=== PATIENT | female | born 1970 | race Caucasian/White ===

== ENCOUNTER 2019-05-07 17:34 | Emergency (ER) | payer MEDICAID ==
[~2019-05-07] VITALS: Ht 162.6 cm; Wt 110.0 kg
[~2019-05-07 17:34] MED LIST: CARI350T PO; CLON-527 PO; HYDR-4353 PO; ONDA4TAB6 PO; ONDA8TAB9 PO
[2019-05-07 18:38] LABS: BASOPHILS # (AUTO) 0.1 X10'3 (0-0.2); BASOPHILS % (AUTO) 0.8 % (0-1); EOSINOPHILS # (AUTO) 0.2 X10'3 (0-0.9); HEMATOCRIT 41.1 % (35.0-45.0); HEMOGLOBIN 13.8 g/dl (12.0-16.0); LYMPHOCYTES # (AUTO) 2.3 X10'3 (1.1-4.8); LYMPHOCYTES % (AUTO) 24.3 % (21-51); MEAN CORPUSCULAR HEMOGLOBIN 30.6 PG (27.0-31.0); MEAN CORPUSCULAR HGB CONC 33.6 g/dL (33.0-36.5); MEAN CORPUSCULAR VOLUME 90.9 FL (78-98); MEAN PLATELET VOLUME 7.3 FL (7.4-10.4); MONOCYTES # (AUTO) 0.8 X10'3 (0-0.9); MONOCYTES % (AUTO) 7.8 % (2-12); NEUTROPHILS # (AUTO) 6.3 X10'3 (1.8-7.7); NEUTROPHILS % (AUTO) 65.1 % (42-75); PLATELET COUNT 331 X10'3 (140-440); RED BLOOD COUNT 4.52 X10'6 (4.20-5.60); RED CELL DISTRIBUTION WIDTH 14.5 % (11.5-14.5); WHITE BLOOD COUNT 9.6 X10'3 (4.5-11.0)
--- NOTE | 2019-05-07 18:45 | NUR ---
pt with stable vs, ra sats 94% rr 22. pt reports moderate ant to lungs and chest heaviness , increased with couging and deep breathing . awaiting er provider.
[2019-05-07 18:46] LABS: PARTIAL THROMBOPLASTIN TIME 27 SECONDS (22-32)
[2019-05-07 18:52] LABS: ALANINE AMINOTRANSFERASE 32 U/L (12-78); ALBUMIN 3.3 G/DL (3.4-5.0); ALBUMIN/GLOBULIN RATIO 0.8 (1.1-1.5); ALKALINE PHOSPHATASE 84 IU/L (46-116); ANION GAP 5 (8-16); ASPARTATE AMINO TRANSFERASE 21 U/L (10-37); BILIRUBIN,TOTAL 0.5 MG/DL (0.1-1.0); BLOOD UREA NITROGEN 12 MG/DL (7-18); BUN/CREATININE RATIO 12.6 (6.6-38.0); CALCIUM 8.8 MG/DL (8.5-10.1); CHLORIDE 104 MMOL/L (99-107); CREATININE 0.95 MG/DL (0.40-0.90); GLUCOSE 97 MG/DL (70-104); POTASSIUM 3.5 MMOL/L (3.5-5.1); SODIUM 142 MMOL/L (135-145); TOTAL CARBON DIOXIDE 33.3 MMOL/L (24-32); TOTAL PROTEIN 7.2 G/DL (6.4-8.2); eGFR 63 ML/MIN
[2019-05-07 19:39] VITALS: BP 121/62
--- NOTE | 2019-05-07 20:29 | NUR ---
noticed that the patient was not in the room. The gown is laying over the siderail and no belongings in the room.
== END 2019-05-07 20:30 | disposition left against medical advice (07) ==
LOC: ER 17:36
DX: R07.89 Other chest pain (principal); R06.00 Dyspnea, unspecified; R61 Generalized hyperhidrosis; Z53.21 Procedure and treatment not carried out due to patient leaving prior to being seen by health care provider; Z79.899 Other long term (current) drug therapy
CPT/HCPCS: 36415; 71046; 80053; 84484; 85025; 85610; 85730; 93005

== ENCOUNTER 2020-03-03 13:02 | Inpatient (IN) | payer MEDICAID ==
[~2020-03-03] VITALS: Ht 162.6 cm; Wt 108.6 kg
[2020-03-03 13:42] LABS: BASOPHILS # (AUTO) 0.1 X10'3 (0-0.2); BASOPHILS % (AUTO) 0.8 % (0-1); EOSINOPHILS # (AUTO) 0.1 X10'3 (0-0.9); EOSINOPHILS % (AUTO) 0.6 % (0-6); HEMATOCRIT 45.5 % (35.0-45.0); HEMOGLOBIN 15.1 g/dl (12.0-16.0); LYMPHOCYTES # (AUTO) 3.2 X10'3 (1.1-4.8); LYMPHOCYTES % (AUTO) 22.2 % (21-51); MEAN CORPUSCULAR HEMOGLOBIN 30.3 PG (27.0-31.0); MEAN CORPUSCULAR HGB CONC 33.1 g/dL (33.0-36.5); MEAN CORPUSCULAR VOLUME 91.7 FL (78-98); MEAN PLATELET VOLUME 8.1 FL (7.4-10.4); MONOCYTES # (AUTO) 0.5 X10'3 (0-0.9); MONOCYTES % (AUTO) 3.6 % (2-12); NEUTROPHILS # (AUTO) 10.6 X10'3 (1.8-7.7); NEUTROPHILS % (AUTO) 72.8 % (42-75); PLATELET COUNT 293 X10'3 (140-440); RED BLOOD COUNT 4.96 X10'6 (4.20-5.60); RED CELL DISTRIBUTION WIDTH 14.5 % (11.5-14.5); WHITE BLOOD COUNT 14.5 X10'3 (4.5-11.0)
[2020-03-03] MEDS ORDERED: aspirin 325mg tablet PO ONE (13:45)
[2020-03-03 14:20] LABS: ALANINE AMINOTRANSFERASE 56 U/L (12-78); ALBUMIN 3.2 G/DL (3.4-5.0); ALBUMIN/GLOBULIN RATIO 0.8 (1.1-1.5); ALKALINE PHOSPHATASE 105 IU/L (46-116); ANION GAP 10 (8-16); ASPARTATE AMINO TRANSFERASE 76 U/L (10-37); BILIRUBIN,TOTAL 0.5 MG/DL (0.1-1.0); BLOOD UREA NITROGEN 8 MG/DL (7-18); BUN/CREATININE RATIO 6.1 (6.6-38.0); CALCIUM 9.3 MG/DL (8.5-10.1); CHLORIDE 103 MMOL/L (99-107); CREATININE 1.31 MG/DL (0.40-0.90); GLUCOSE 203 MG/DL (70-104); POTASSIUM 3.1 MMOL/L (3.5-5.1); SODIUM 141 MMOL/L (135-145); TOTAL CARBON DIOXIDE 28.2 MMOL/L (24-32); TOTAL PROTEIN 7.3 G/DL (6.4-8.2); eGFR 43 ML/MIN
[2020-03-03 14:22] LABS: D-DIMER 9.66 MG/L FEU (0-0.50)
[2020-03-03] MEDS ORDERED: heparin 25,000 UNIT/250ml bag 250 ML IV SCH ×2 (14:27→15:32)
[2020-03-03 14:29] LABS: LIPASE < 50 U/L (73-393)
[2020-03-03] MEDS ORDERED: heparin 10,000 units/1 ML INJ IV ONE ×4 (14:30→15:35)
[2020-03-03] MEDS ORDERED: nitroGLYCERIN 0.4mg/hour patch TD ONE (14:30)
[2020-03-03] MEDS ORDERED: heparin 10,000 units/1 ML INJ IV PRN ×2 (14:30→15:35)
[2020-03-03] MEDS ORDERED: iohexol 350MG/ML 100ml bottle IV ONE (14:33)
[2020-03-03] MEDS: heparin 25,000 UNIT/250ml bag 250 ML IV SCH (15:09)
--- NOTE | 2020-03-03 15:12 | NUR ---
SPOKE WITH AYSHA CLAUDIO REGARDING PT BP. ORDERED TO HOLD NITRO PATCH.
[2020-03-03] MEDS ORDERED: GABA-534 PO (15:21)
[2020-03-03] MEDS ORDERED: LANS15CA10 PO (15:21)
[2020-03-03] MEDS ORDERED: LISI-600 PO (15:22)
[2020-03-03] MEDS ORDERED: ondansetron/PF 4mg/2ml inj IV ONE (15:25)
[2020-03-03] MEDS ORDERED: morphine 4 MG/ML inj SYRINge IV ONE (15:25)
[2020-03-03] MEDS: normal saline 1000ml 1,000 ML IV SCH (15:32)
[2020-03-03] MEDS ORDERED: potassium Cl 20 mEq SR tablet PO PRN ×2 (15:35)
[2020-03-03] MEDS ORDERED: mag hydrox/Alum hydrox/simeth 30ml oral suspension PO PRN (15:35)
[2020-03-03] MEDS ORDERED: magnesium 4gm in 100ml NS 100 ML IV PRN (15:35)
[2020-03-03] MEDS ORDERED: magnesium 2GM in 50ml NS 50 ML IV PRN (15:35)
[2020-03-03] MEDS ORDERED: potassium CL 10mEq/100ml bag 100 ML IV PRN (15:35)
[2020-03-03] MEDS ORDERED: ondansetron/PF 4mg/2ml inj IV PRN (15:35)
[2020-03-03] MEDS ORDERED: acetaminophen 325mg tablet PO PRN (15:35)
[2020-03-03 16:00] VITALS: BP 113/79
[2020-03-03] MEDS: ipratropium/albuterol 3ml nebule NEB SCH ×2 (16:44→20:07)
--- NOTE | 2020-03-03 17:31 | NUR ---
CRITICAL LAB PAGED TO HOSPITALIST, DR. MYERS PAGER ID: [phone] MESSAGE: LORETO Wang [phone]. CRITICAL LAB: 3013A PATRICA, 3 HOUR TROP 1.61, UP FROM 0.92. ALSO HER HR IS 150. THANKS!
--- NOTE | 2020-03-03 17:35 | NUR ---
SPOKE WITH DR. MYERS ABOUT CRITICAL TROPONIN, EXPECTED RESULT, STATES TO CANCEL REMAINING TROP LEVELS THIS IS EXPECTED LAB AND LIKELY RELATED TO HER PE AND RIGHT HEART STRAIN, KEEP ON HEPARIN DRIP AND CONTINUE TO MONITOR.
[2020-03-03 18:00] VITALS: BP 103/76
--- NOTE | 2020-03-03 18:00 | NUR ---
no baseline ptt drawn for heparin gtt, noted at 2130 lab drawe. issues with coagulation, redrawn for a baseline ptt several times. 3rg specomen sent to lab, awaiting results 5703/04/20. aware, no new orders at this time.
--- NOTE | 2020-03-03 18:15 | NUR ---
Patient in room PCU 3013. I have received report from Jackelyn SUTTON and had the opportunity to ask questions and assume patient care.
--- NOTE | 2020-03-03 18:38 | NUR ---
Problems reprioritized. Patient report given, questions answered & plan of care reviewed with Rosie SUTTON.
[2020-03-03] MEDS: oxyCODONE IR 5mg (immed. release) tablet PO PRN (19:27)
[2020-03-03] MEDS: gabapentin 400mg capsule PO SCH (19:27)
[2020-03-03] MEDS: K and/or MAG REPLACEMENT MC SCH (20:00)
[2020-03-03] MEDS: budesonide 0.5mg/2ml UD nebule IH SCH (20:07)
[2020-03-03] MEDS: clonazePAM 1mg tablet PO SCH (21:08)
[2020-03-03] MEDS: potassium CL 10mEq/100ml bag 100 ML IV PRN (21:08)
[2020-03-03] MEDS: nicotine 14mg patch - 24hr TD SCH (21:14)
[2020-03-03 21:40] VITALS: BP 103/76
[2020-03-03 22:00] VITALS: BP 148/63
--- NOTE | 2020-03-03 23:05 | NUR ---
notified by lab PTT needs to be redrawn. Shut off heparin gttm obtaining sample for theraputic value.
[2020-03-04 02:00] VITALS: BP 96/68
[2020-03-04] MEDS: heparin 25,000 UNIT/250ml bag 250 ML IV SCH ×4 (02:00→19:45)
[2020-03-04] MEDS: oxyCODONE IR 5mg (immed. release) tablet PO PRN ×5 (02:05→19:13)
[2020-03-04] MEDS: potassium CL 10mEq/100ml bag 100 ML IV PRN (03:51)
[2020-03-04] MEDS: normal saline 1000ml 1,000 ML IV SCH ×3 (05:21→21:32)
[2020-03-04 06:00] VITALS: BP 96/62
--- NOTE | 2020-03-04 06:07 | NUR ---
Problems reprioritized. Patient report given, questions answered & plan of care reviewed with Dayton RN .
--- NOTE | 2020-03-04 06:24 | NUR ---
Patient in room PCU 3013. I have received report from osmin saha and had the opportunity to ask questions and assume patient care.
[2020-03-04 06:39] LABS: BASOPHILS # (AUTO) 0.1 X10'3 (0-0.2); BASOPHILS % (AUTO) 0.7 % (0-1); EOSINOPHILS # (AUTO) 0.1 X10'3 (0-0.9); EOSINOPHILS % (AUTO) 0.6 % (0-6); HEMATOCRIT 43.1 % (35.0-45.0); HEMOGLOBIN 14.2 g/dl (12.0-16.0); LYMPHOCYTES # (AUTO) 2.9 X10'3 (1.1-4.8); MEAN CORPUSCULAR HEMOGLOBIN 30.6 PG (27.0-31.0); MEAN CORPUSCULAR VOLUME 92.9 FL (78-98); MEAN PLATELET VOLUME 8.6 FL (7.4-10.4); MONOCYTES # (AUTO) 0.8 X10'3 (0-0.9); MONOCYTES % (AUTO) 7.5 % (2-12); NEUTROPHILS # (AUTO) 6.9 X10'3 (1.8-7.7); NEUTROPHILS % (AUTO) 64.2 % (42-75); PLATELET COUNT 231 X10'3 (140-440); RED BLOOD COUNT 4.64 X10'6 (4.20-5.60); RED CELL DISTRIBUTION WIDTH 14.8 % (11.5-14.5); WHITE BLOOD COUNT 10.7 X10'3 (4.5-11.0)
[2020-03-04 07:02] LABS: ALANINE AMINOTRANSFERASE 83 U/L (12-78); ALBUMIN/GLOBULIN RATIO 0.8 (1.1-1.5); ALKALINE PHOSPHATASE 100 IU/L (46-116); ANION GAP 10 (8-16); ASPARTATE AMINO TRANSFERASE 93 U/L (10-37); BILIRUBIN,TOTAL 0.4 MG/DL (0.1-1.0); BLOOD UREA NITROGEN 9 MG/DL (7-18); BUN/CREATININE RATIO 9.1 (6.6-38.0); CALCIUM 8.8 MG/DL (8.5-10.1); CHLORIDE 103 MMOL/L (99-107); CHOL/HDL RATIO 5.4 (0.00-4.99); CHOLESTEROL 217 MG/DL (0-200); CREATININE 0.99 MG/DL (0.40-0.90); GLUCOSE 129 MG/DL (70-104); HDL CHOLESTEROL 40 MG/DL (35-60); LDL CHOLESTEROL 158 MG/DL (50-100); MAGNESIUM 2.3 MG/DL (1.5-2.4); SODIUM 139 MMOL/L (135-145); TOTAL CARBON DIOXIDE 26.1 MMOL/L (24-32); TRIGLYCERIDES 133 MG/DL (20-135); eGFR 59 ML/MIN
[2020-03-04] MEDS: budesonide 0.5mg/2ml UD nebule IH SCH ×2 (07:02→20:32)
[2020-03-04] MEDS: ipratropium/albuterol 3ml nebule NEB SCH ×4 (07:02→20:30)
--- NOTE | 2020-03-04 07:50 | NUR ---
PAGER ID: [phone] MESSAGE: DR. MYERS, 8643A/PATRICA, NO DIET ORDER??? CAN SHE HAVE ONE? JACOBY 7325/[id number]. QT
[2020-03-04] MEDS: K and/or MAG REPLACEMENT MC SCH ×2 (08:00→19:14)
[2020-03-04] MEDS: pantoprazole 40mg Tablet.DR PO SCH (08:43)
[2020-03-04] MEDS: methylPREDNISolone sod succ 125mg/2ml vial IV SCH ×2 (08:43→15:28)
[2020-03-04] MEDS: clonazePAM 1mg tablet PO SCH ×3 (08:44→20:59)
[2020-03-04] MEDS: gabapentin 400mg capsule PO SCH ×2 (08:44→19:13)
[2020-03-04] MEDS: nicotine 14mg patch - 24hr TD SCH (08:45)
[2020-03-04 11:00] VITALS: BP 126/81
--- NOTE | 2020-03-04 11:40 | NUR ---
PAGER ID: [phone] MESSAGE: DR. MYERS, 7025F/PATRICA, PTT WAS DUE AT 0800. 3 PHLEBOTOMISTS HAVE TRIED AND FAILED. NEW PHLEB HERE AT 1200, THEY WILL SEND AND ATTEMPT PTT DRAW. SHE IS A HARD STICK. HEPARIN CONTINUES AT 1700 UNITS PER HOUR. JACOBY 0445/0362, TY
--- NOTE | 2020-03-04 13:26 | NUR ---
PAGER ID: [phone] MESSAGE: DR. MYERS, 3013A/PATRICA, PTT >139. HEPARIN WAS AT 1700 UNITS/HOUR. FOLLOWING PROTOCOL. JACOBY 1246/5491. TY
--- NOTE | 2020-03-04 14:29 | NUR ---
Problems reprioritized. Patient report given, questions answered & plan of care reviewed with HERMAN BENNETT.
--- NOTE | 2020-03-04 14:41 | NUR ---
Patient in room PCU 3013. I have received report from Dayton SUTTON and had the opportunity to ask questions and assume patient care.
[2020-03-04 15:00] VITALS: BP 119/79
[2020-03-04 18:00] VITALS: BP 108/78
--- NOTE | 2020-03-04 18:33 | NUR ---
Problems reprioritized. Patient report given, questions answered & plan of care reviewed with Rosie SUTTON.
[2020-03-04 19:38] LABS: PARTIAL THROMBOPLASTIN TIME 78 SECONDS (22-32)
[2020-03-04 22:00] VITALS: BP 113/69
[2020-03-04] MEDS ORDERED: normal saline 1000ml 1,000 ML IV SCH (22:06)
[2020-03-04] MEDS ORDERED: CADD PCA waste documentation MC PRN (22:10)
[2020-03-04] MEDS ORDERED: naloxone 0.4 mg/ml inj IV PRN (22:10)
[2020-03-04] MEDS ORDERED: diphenhydrAMINE 25mg capsule PO PRN (22:30)
--- NOTE | 2020-03-05 00:30 | NUR ---
1930 patients iv infiltrated, seeking iv access for heparin infusiion. Patient is hard stick, may need picc line /ej for vascular access. Addendum: 03/05/20 at 0033 by Rosie Mena RN heparin stopped at 0, awaiting vascular access. PiICC line request for vascular access ordered.
[2020-03-05] MEDS: oxyCODONE IR 5mg (immed. release) tablet PO PRN (00:53)
[2020-03-05] MEDS: methylPREDNISolone sod succ 125mg/2ml vial IV SCH ×4 (00:59→23:59)
[2020-03-05] MEDS: HYDROmorphone/NS 1 mg/ml CADD 50 ML IV SCH ×13 (01:00→23:00)
[2020-03-05] MEDS ORDERED: heparin, porcine 5000 units/ml vial SQ STA (01:29)
[2020-03-05] MEDS ORDERED: oxyCODONE IR 5mg (immed. release) tablet PO ONE (01:35)
[2020-03-05 01:36] LABS: ALANINE AMINOTRANSFERASE 186 U/L (12-78); ALBUMIN/GLOBULIN RATIO 0.7 (1.1-1.5); ALKALINE PHOSPHATASE 108 IU/L (46-116); ANION GAP 11 (8-16); ASPARTATE AMINO TRANSFERASE 139 U/L (10-37); BILIRUBIN,TOTAL 0.4 MG/DL (0.1-1.0); BLOOD UREA NITROGEN 9 MG/DL (7-18); BUN/CREATININE RATIO 8.4 (6.6-38.0); CALCIUM 8.9 MG/DL (8.5-10.1); CHLORIDE 104 MMOL/L (99-107); CREATININE 1.07 MG/DL (0.40-0.90); GLUCOSE 171 MG/DL (70-104); MAGNESIUM 2.2 MG/DL (1.5-2.4); SODIUM 139 MMOL/L (135-145); TOTAL PROTEIN 7.2 G/DL (6.4-8.2); eGFR 54 ML/MIN
[2020-03-05 02:00] VITALS: BP 116/80
[2020-03-05 06:00] VITALS: BP 115/69
[2020-03-05] MEDS: heparin 25,000 UNIT/250ml bag 250 ML IV SCH ×3 (06:24→14:54)
[2020-03-05 06:25] LABS: BASOPHILS % (AUTO) 0.3 % (0-1); EOSINOPHILS % (AUTO) 0 % (0-6); HEMATOCRIT 40.7 % (35.0-45.0); HEMOGLOBIN 13.4 g/dl (12.0-16.0); LYMPHOCYTES # (AUTO) 1.1 X10'3 (1.1-4.8); LYMPHOCYTES % (AUTO) 9.5 % (21-51); MEAN CORPUSCULAR HEMOGLOBIN 30.8 PG (27.0-31.0); MEAN CORPUSCULAR HGB CONC 32.8 g/dL (33.0-36.5); MEAN CORPUSCULAR VOLUME 93.9 FL (78-98); MEAN PLATELET VOLUME 8.6 FL (7.4-10.4); MONOCYTES # (AUTO) 0.6 X10'3 (0-0.9); MONOCYTES % (AUTO) 4.8 % (2-12); NEUTROPHILS # (AUTO) 10.3 X10'3 (1.8-7.7); NEUTROPHILS % (AUTO) 85.4 % (42-75); PLATELET COUNT 204 X10'3 (140-440); RED BLOOD COUNT 4.33 X10'6 (4.20-5.60); RED CELL DISTRIBUTION WIDTH 14.5 % (11.5-14.5)
--- NOTE | 2020-03-05 06:38 | NUR ---
Patient in room PCU 3013. I have received report from osmin saha and had the opportunity to ask questions and assume patient care.
[2020-03-05] MEDS: heparin 10,000 units/1 ML INJ IV PRN (07:10)
[2020-03-05] MEDS: normal saline 1000ml 1,000 ML IV SCH ×3 (07:32→22:13)
--- NOTE | 2020-03-05 07:36 | NUR ---
PAGED PICC : PLEASE CALL JACOBY [phone] AND DEBBY King [phone]. TY
[2020-03-05] MEDS: K and/or MAG REPLACEMENT MC SCH ×2 (08:00→20:00)
[2020-03-05] MEDS: budesonide 0.5mg/2ml UD nebule IH SCH ×2 (08:02→20:00)
[2020-03-05] MEDS: ipratropium/albuterol 3ml nebule NEB SCH ×4 (08:02→21:00)
[2020-03-05] MEDS: pantoprazole 40mg Tablet.DR PO SCH (08:18)
[2020-03-05] MEDS: clonazePAM 1mg tablet PO SCH ×3 (08:20→20:20)
[2020-03-05] MEDS: docusate sod 100mg capsule PO SCH ×2 (08:20→20:20)
[2020-03-05] MEDS: sennosides/docusate sodium tablet PO SCH ×2 (08:22→20:20)
[2020-03-05] MEDS: gabapentin 400mg capsule PO SCH ×2 (08:22→20:20)
[2020-03-05] MEDS: nicotine 14mg patch - 24hr TD SCH (08:23)
--- NOTE | 2020-03-05 09:41 | NUR ---
DISCUSSED WITH DR MYERS THAT PICC LINE WAS NO APPROPRIATE FOR THIS PATIENT, HE AGREED AND STATED ANY LINE WILL WORK. Filomena BENTLEY PICC HERMAN
[2020-03-05 11:00] VITALS: BP 139/82
--- NOTE | 2020-03-05 12:05 | NUR ---
Dietary TC: Pt requesting tater tots, burgers, and other foods not allowable on heart healthy diet. Noted elevated LDL 158 this admit w/ DX hyperlipidemia per EMR. Pt seen by RD for written/verbal heart healthy diet ed w/ RD contact information and alternative menu write-in list provided. Addendum: 03/05/20 at [address] Amended: Links added.
--- NOTE | 2020-03-05 12:05 | NUR ---
C/O INADEQUATE PAIN RELIEF, REQUESTED DILAUDID DOSE TO BE INCREASED. INCREASED DILAUDID DOSE X 1.5 PER ORDERS, INCREASING PY CONTROLLED BOLUS TO 0.3 MG. WILL CONTINUE TO MONITOR.
--- NOTE | 2020-03-05 14:29 | NUR ---
Wound care consulted for a wart on pt's right plantar foot. Wound care at bedside to see pt. She gave verbal consent to be seen. The object of concern was completely asymptomatic with no associated redness, swelling, drainage, or open wound bed. It appears as a large hyperkeratotic lesion, wart, callus or otherwise. Because there is no breakdown or concerns, wound care will be signing off at this time.
[2020-03-05 15:00] VITALS: BP 102/74
[2020-03-05 18:00] VITALS: BP 126/78
--- NOTE | 2020-03-05 18:19 | NUR ---
Problems reprioritized. Patient report given, questions answered & plan of care reviewed with HERMAN DOMÍNGUEZ.
--- NOTE | 2020-03-05 18:30 | NUR ---
Patient in room PCU 3013. I have received report from Dayton SUTTON and had the opportunity to ask questions and assume patient care.
--- NOTE | 2020-03-05 20:10 | NUR ---
discussed with pt still in 03/05 pain, okayed to increase demand dose of ASPHALT MIXING MACHINE OPERATOR to 0.4, will continue monitor pt
[2020-03-05 22:00] VITALS: BP 117/57
[2020-03-06] MEDS: heparin 25,000 UNIT/250ml bag 250 ML IV SCH ×2 (00:05→16:27)
[2020-03-06] MEDS: HYDROmorphone/NS 1 mg/ml CADD 50 ML IV SCH ×5 (01:00→09:00)
[2020-03-06 02:00] VITALS: BP 143/78
[2020-03-06] MEDS ORDERED: guaiFENesin/DM/phenylephrine syrup 120ml bottle PO PRN (02:35)
[2020-03-06 06:00] VITALS: BP 126/75
[2020-03-06 06:07] LABS: BASOPHILS % (AUTO) 0.4 % (0-1); EOSINOPHILS % (AUTO) 0 % (0-6); HEMATOCRIT 38.4 % (35.0-45.0); HEMOGLOBIN 12.5 g/dl (12.0-16.0); LYMPHOCYTES # (AUTO) 1.2 X10'3 (1.1-4.8); LYMPHOCYTES % (AUTO) 8.9 % (21-51); MEAN CORPUSCULAR HEMOGLOBIN 30.3 PG (27.0-31.0); MEAN CORPUSCULAR HGB CONC 32.7 g/dL (33.0-36.5); MEAN CORPUSCULAR VOLUME 92.8 FL (78-98); MEAN PLATELET VOLUME 8.9 FL (7.4-10.4); MONOCYTES # (AUTO) 0.7 X10'3 (0-0.9); MONOCYTES % (AUTO) 5.1 % (2-12); NEUTROPHILS # (AUTO) 11.2 X10'3 (1.8-7.7); NEUTROPHILS % (AUTO) 85.6 % (42-75); PLATELET COUNT 219 X10'3 (140-440); RED BLOOD COUNT 4.14 X10'6 (4.20-5.60); RED CELL DISTRIBUTION WIDTH 14.7 % (11.5-14.5); WHITE BLOOD COUNT 13.1 X10'3 (4.5-11.0)
[2020-03-06 06:25] LABS: ALANINE AMINOTRANSFERASE 114 U/L (12-78); ALBUMIN 2.9 G/DL (3.4-5.0); ALBUMIN/GLOBULIN RATIO 0.8 (1.1-1.5); ALKALINE PHOSPHATASE 89 IU/L (46-116); ANION GAP 8 (8-16); ASPARTATE AMINO TRANSFERASE 32 U/L (10-37); BILIRUBIN,TOTAL 0.2 MG/DL (0.1-1.0); BLOOD UREA NITROGEN 10 MG/DL (7-18); BUN/CREATININE RATIO 11.8 (6.6-38.0); CALCIUM 8.8 MG/DL (8.5-10.1); CHLORIDE 107 MMOL/L (99-107); CREATININE 0.85 MG/DL (0.40-0.90); GLUCOSE 125 MG/DL (70-104); MAGNESIUM 2.3 MG/DL (1.5-2.4); POTASSIUM 3.8 MMOL/L (3.5-5.1); SODIUM 142 MMOL/L (135-145); TOTAL CARBON DIOXIDE 26.8 MMOL/L (24-32); TOTAL PROTEIN 6.5 G/DL (6.4-8.2); eGFR 71 ML/MIN
--- NOTE | 2020-03-06 06:38 | NUR ---
Problems reprioritized. Patient report given, questions answered & plan of care reviewed with Dayton RN.
--- NOTE | 2020-03-06 06:47 | NUR ---
Patient in room PCU 3013. I have received report from HERMAN DOMÍNGUEZ and had the opportunity to ask questions and assume patient care.
[2020-03-06] MEDS: K and/or MAG REPLACEMENT MC SCH ×2 (08:00→20:00)
[2020-03-06] MEDS: budesonide 0.5mg/2ml UD nebule IH SCH ×2 (08:36→19:50)
[2020-03-06] MEDS: ipratropium/albuterol 3ml nebule NEB SCH ×4 (08:36→19:49)
[2020-03-06] MEDS: pantoprazole 40mg Tablet.DR PO SCH (08:46)
[2020-03-06] MEDS: docusate sod 100mg capsule PO SCH (08:47)
[2020-03-06] MEDS: gabapentin 400mg capsule PO SCH ×2 (08:47→20:25)
[2020-03-06] MEDS: clonazePAM 1mg tablet PO SCH ×3 (08:47→20:26)
[2020-03-06] MEDS: methylPREDNISolone sod succ 125mg/2ml vial IV SCH ×2 (08:47→16:16)
[2020-03-06] MEDS: nicotine 14mg patch - 24hr TD SCH (08:48)
[2020-03-06] MEDS: sennosides/docusate sodium tablet PO SCH (08:48)
[2020-03-06] MEDS: normal saline 1000ml 1,000 ML IV SCH (09:21)
--- NOTE | 2020-03-06 09:47 | NUR ---
O2 Sat at rest on room air:_92__% If below 89%: Recovery O2 Sat at rest on ___LPM:___%:___% via (mask/nasal cannula, etc..) No further documentation is necessary. If O2 Sat did not drop below 89% on room air,ambulate patient on room air. O2 Sat while ambulating on room air:__86_% Recovery O2 Sat while ambulating on _RA__LPM:__92_% No further documentation is necessary. If patient does not drop below 89% while ambulating, he/she does not qualify for home O2.
[2020-03-06] MEDS: morphine ER 30mg tablet PO SCH ×2 (10:21→16:16)
[2020-03-06] MEDS ORDERED: CADD PCA waste documentation MC PRN (10:40)
[2020-03-06 11:00] VITALS: BP 152/83
--- NOTE | 2020-03-06 11:26 | NUR ---
O2 Sat at rest on room air:__92_% If below 89%: Recovery O2 Sat at rest on ___LPM:___%:___% via (mask/nasal cannula, etc..) No further documentation is necessary. If O2 Sat did not drop below 89% on room air,ambulate patient on room air. O2 Sat while ambulating on room air:__86_% Recovery O2 Sat while ambulating on __2_LPM:__95_% No further documentation is necessary. If patient does not drop below 89% while ambulating, he/she does not qualify for home O2.
--- NOTE | 2020-03-06 12:55 | NUR ---
PAGER ID: [phone] MESSAGE: DR. MYERS, 3909Q/BRODERICK BURCIAGA, SHE JUST SAID WHEN WALKING WITH PT, GOT TOO SOB AND INCREASED PAIN, NOT SURE IF SAFE FOR HOME. JACOBY [id number]/[id number], TY
[2020-03-06 15:00] VITALS: BP 128/79
[2020-03-06] MEDS: morphine 10mg/0.5ml (conc. morphine) oral syringe PO PRN (17:21)
[2020-03-06] MEDS ORDERED: furosemide 20 MG/2 ML vial IV ONE (17:45)
[2020-03-06 18:00] VITALS: BP 146/92
--- NOTE | 2020-03-06 18:22 | NUR ---
Problems reprioritized. Patient report given, questions answered & plan of care reviewed with osmin lobo.
--- NOTE | 2020-03-06 18:37 | NUR ---
Patient in room PCU 3013. I have received report from Dayton SUTTON and had the opportunity to ask questions and assume patient care.
[2020-03-06] MEDS: guaiFENesin/DM 10ml UD oral syrup PO PRN (19:15)
[2020-03-06] MEDS: oxyCODONE IR 5mg (immed. release) tablet PO PRN (20:26)
[2020-03-06] MEDS: magnesium hydroxide 30ml (MOM) UD suspension PO PRN (20:32)
[2020-03-06 22:00] VITALS: BP 131/74
[2020-03-07] MEDS: methylPREDNISolone sod succ 125mg/2ml vial IV SCH ×4 (00:05→23:22)
[2020-03-07] MEDS: morphine ER 30mg tablet PO SCH ×4 (00:05→23:23)
[2020-03-07] MEDS: morphine 10mg/0.5ml (conc. morphine) oral syringe PO PRN ×4 (00:09→19:09)
[2020-03-07 02:00] VITALS: BP 139/84
[2020-03-07 02:18] LABS: BASOPHILS % (AUTO) 0.2 % (0-1); EOSINOPHILS % (AUTO) 0 % (0-6); HEMATOCRIT 36.9 % (35.0-45.0); HEMOGLOBIN 12.1 g/dl (12.0-16.0); LYMPHOCYTES # (AUTO) 1.1 X10'3 (1.1-4.8); LYMPHOCYTES % (AUTO) 9.4 % (21-51); MEAN CORPUSCULAR HEMOGLOBIN 30.4 PG (27.0-31.0); MEAN CORPUSCULAR HGB CONC 32.9 g/dL (33.0-36.5); MEAN CORPUSCULAR VOLUME 92.6 FL (78-98); MEAN PLATELET VOLUME 8.5 FL (7.4-10.4); MONOCYTES # (AUTO) 0.4 X10'3 (0-0.9); MONOCYTES % (AUTO) 3.4 % (2-12); PLATELET COUNT 212 X10'3 (140-440); RED BLOOD COUNT 3.98 X10'6 (4.20-5.60); RED CELL DISTRIBUTION WIDTH 14.8 % (11.5-14.5); WHITE BLOOD COUNT 11.5 X10'3 (4.5-11.0)
[2020-03-07 02:30] LABS: ALANINE AMINOTRANSFERASE 85 U/L (12-78); ALBUMIN 2.7 G/DL (3.4-5.0); ALBUMIN/GLOBULIN RATIO 0.8 (1.1-1.5); ALKALINE PHOSPHATASE 83 IU/L (46-116); ANION GAP 4 (8-16); ASPARTATE AMINO TRANSFERASE 20 U/L (10-37); BILIRUBIN,TOTAL 0.2 MG/DL (0.1-1.0); BLOOD UREA NITROGEN 14 MG/DL (7-18); BUN/CREATININE RATIO 13.3 (6.6-38.0); CALCIUM 8.3 MG/DL (8.5-10.1); CHLORIDE 106 MMOL/L (99-107); CREATININE 1.05 MG/DL (0.40-0.90); GLUCOSE 145 MG/DL (70-104); MAGNESIUM 2.2 MG/DL (1.5-2.4); POTASSIUM 3.2 MMOL/L (3.5-5.1); SODIUM 142 MMOL/L (135-145); TOTAL CARBON DIOXIDE 31.9 MMOL/L (24-32); eGFR 55 ML/MIN
--- NOTE | 2020-03-07 06:25 | NUR ---
Problems reprioritized. Patient report given, questions answered & plan of care reviewed with CATARINA SUTTON.
--- NOTE | 2020-03-07 06:32 | NUR ---
Patient in room PCU 3013. I have received report from HERMAN Nunez and had the opportunity to ask questions and assume patient care.
[2020-03-07 07:00] VITALS: BP 143/83
[2020-03-07] MEDS: clonazePAM 1mg tablet PO SCH ×3 (07:29→20:34)
[2020-03-07] MEDS: pantoprazole 40mg Tablet.DR PO SCH (07:29)
[2020-03-07] MEDS: gabapentin 400mg capsule PO SCH ×2 (07:29→19:08)
[2020-03-07] MEDS: nicotine 14mg patch - 24hr TD SCH (07:29)
[2020-03-07] MEDS ORDERED: potassium Cl 20 mEq SR tablet PO PRN (07:30)
[2020-03-07] MEDS ORDERED: potassium CL 10mEq/100ml bag 100 ML IV PRN ×2 (07:30)
[2020-03-07] MEDS: K and/or MAG REPLACEMENT MC SCH ×4 (07:41→20:00)
[2020-03-07] MEDS: potassium Cl 20 mEq SR tablet PO PRN ×3 (08:04→19:08)
[2020-03-07] MEDS: budesonide 0.5mg/2ml UD nebule IH SCH ×2 (09:26→20:10)
[2020-03-07] MEDS: ipratropium/albuterol 3ml nebule NEB SCH ×5 (09:26→20:10)
--- NOTE | 2020-03-07 09:44 | NUR ---
PAGER ID: [phone] MESSAGE: Patient Phuc 3013 A. Critical PTT 133, stopped heparin infusion per protocol. [facility] [phone]
[2020-03-07] MEDS: oxyCODONE IR 5mg (immed. release) tablet PO PRN ×3 (10:09→20:34)
[2020-03-07] MEDS ORDERED: bisacodyl 10mg suppository rectal RC STA (10:40)
[2020-03-07 11:00] VITALS: BP 120/75
[2020-03-07] MEDS: heparin 25,000 UNIT/250ml bag 250 ML IV SCH ×3 (11:41→15:07)
--- NOTE | 2020-03-07 13:13 | NUR ---
PAGER ID: [phone] MESSAGE: Patient Phuc 3013 A. Pt O2 desated to 83% during ambulation on 4L after about 20 feet. Don't think she's ready for discharge. :( Recovered at rest to 94% on 2L
[2020-03-07] MEDS ORDERED: furosemide 10 MG/1 ML 10ml inj IV ONE (13:35)
[2020-03-07] MEDS: lactulose 20gm/30ml cup PO SCH ×2 (13:46→19:08)
[2020-03-07 15:00] VITALS: BP 143/59
[2020-03-07] MEDS: heparin 10,000 units/1 ML INJ IV PRN (15:05)
--- NOTE | 2020-03-07 18:16 | NUR ---
Problems reprioritized. Patient report given, questions answered & plan of care reviewed with Mayra SUTTON. Patient stable at transfer of care.
--- NOTE | 2020-03-07 18:18 | NUR ---
Patient in room PCU 3013. I have received report from CATARINA SUTTON and had the opportunity to ask questions and assume patient care.
[2020-03-07] MEDS: guaiFENesin/DM 10ml UD oral syrup PO PRN (20:35)
[2020-03-07 22:00] VITALS: BP 122/78
[2020-03-08] VITALS (10 sets, daily range): BP systolic 106–154; BP diastolic 68–95
[2020-03-08] MEDS: lactulose 20gm/30ml cup PO SCH ×4 (01:52→20:09)
[2020-03-08] MEDS: morphine 10mg/0.5ml (conc. morphine) oral syringe PO PRN ×3 (03:12→12:51)
[2020-03-08 03:13] LABS: BASOPHILS % (AUTO) 0.4 % (0-1); EOSINOPHILS % (AUTO) 0 % (0-6); HEMATOCRIT 40.5 % (35.0-45.0); HEMOGLOBIN 13.4 g/dl (12.0-16.0); LYMPHOCYTES # (AUTO) 1.5 X10'3 (1.1-4.8); LYMPHOCYTES % (AUTO) 11.8 % (21-51); MEAN CORPUSCULAR HEMOGLOBIN 30.3 PG (27.0-31.0); MEAN CORPUSCULAR VOLUME 91.8 FL (78-98); MEAN PLATELET VOLUME 7.8 FL (7.4-10.4); MONOCYTES # (AUTO) 0.7 X10'3 (0-0.9); MONOCYTES % (AUTO) 5.3 % (2-12); NEUTROPHILS # (AUTO) 10.2 X10'3 (1.8-7.7); NEUTROPHILS % (AUTO) 82.5 % (42-75); PLATELET COUNT 247 X10'3 (140-440); RED BLOOD COUNT 4.41 X10'6 (4.20-5.60); RED CELL DISTRIBUTION WIDTH 14.8 % (11.5-14.5); WHITE BLOOD COUNT 12.4 X10'3 (4.5-11.0)
[2020-03-08 03:23] LABS: ALANINE AMINOTRANSFERASE 89 U/L (12-78); ALBUMIN/GLOBULIN RATIO 0.8 (1.1-1.5); ALKALINE PHOSPHATASE 85 IU/L (46-116); ANION GAP 4 (8-16); ASPARTATE AMINO TRANSFERASE 27 U/L (10-37); BILIRUBIN,TOTAL 0.3 MG/DL (0.1-1.0); BLOOD UREA NITROGEN 15 MG/DL (7-18); BUN/CREATININE RATIO 13.4 (6.6-38.0); CALCIUM 8.8 MG/DL (8.5-10.1); CHLORIDE 101 MMOL/L (99-107); CREATININE 1.12 MG/DL (0.40-0.90); GLUCOSE 134 MG/DL (70-104); MAGNESIUM 2.5 MG/DL (1.5-2.4); POTASSIUM 3.7 MMOL/L (3.5-5.1); SODIUM 139 MMOL/L (135-145); TOTAL CARBON DIOXIDE 34.4 MMOL/L (24-32); TOTAL PROTEIN 6.7 G/DL (6.4-8.2); eGFR 51 ML/MIN
[2020-03-08] MEDS: oxyCODONE IR 5mg (immed. release) tablet PO PRN ×4 (03:55→19:54)
[2020-03-08] MEDS: guaiFENesin/DM 10ml UD oral syrup PO PRN ×2 (03:58→14:37)
--- NOTE | 2020-03-08 06:08 | NUR ---
Problems reprioritized. Patient report given, questions answered & plan of care reviewed with Chrissy SUTTON.
--- NOTE | 2020-03-08 06:08 | NUR ---
Patient in room PCU 3013A. I have received report from Rohit RN and Mayra RN and had the opportunity to ask questions and assume patient care.
[2020-03-08] MEDS: K and/or MAG REPLACEMENT MC SCH ×4 (08:00→19:39)
[2020-03-08] MEDS: nicotine 14mg patch - 24hr TD SCH (08:20)
[2020-03-08] MEDS: methylPREDNISolone sod succ 125mg/2ml vial IV SCH ×2 (08:20→16:54)
[2020-03-08] MEDS: gabapentin 400mg capsule PO SCH ×2 (08:20→20:09)
[2020-03-08] MEDS: pantoprazole 40mg Tablet.DR PO SCH (08:20)
[2020-03-08] MEDS: atorvastatin 20mg tablet PO SCH (08:21)
[2020-03-08] MEDS: clonazePAM 1mg tablet PO SCH ×3 (08:21→20:09)
[2020-03-08] MEDS: morphine ER 30mg tablet PO SCH ×2 (08:21→16:54)
[2020-03-08] MEDS: heparin 25,000 UNIT/250ml bag 250 ML IV SCH (08:34)
[2020-03-08] MEDS: ipratropium/albuterol 3ml nebule NEB SCH ×4 (09:31→20:41)
[2020-03-08] MEDS: budesonide 0.5mg/2ml UD nebule IH SCH ×2 (09:32→20:42)
--- NOTE | 2020-03-08 13:32 | NUR ---
O2 Sat at rest on room air: 82% If below 89%: Recovery O2 Sat at rest on 4 LPM: 93% ON 4L NASAL CANNULA No further documentation is necessary. If O2 Sat did not drop below 89% on room air,ambulate patient on room air. O2 Sat while ambulating on room air: 80% Recovery O2 Sat while ambulating on 2LPM: 87%. AT REST PATIENT OXYGEN SATURATION WAS 93% ON 4L NASAL CANNULA No further documentation is necessary. If patient does not drop below 89% while ambulating, he/she does not qualify for home O2.
--- NOTE | 2020-03-08 13:36 | NUR ---
PAGER ID: [phone] MESSAGE: LORETO Wang [phone]. Kam [place] [id number]. FYI ambulated pt, O2 drops to 83% on 2L, 87% on 4L with activity, 10 feet, 93% on 4L at rest.
[2020-03-08] MEDS ORDERED: heparin 25,000 UNIT/250ml bag 250 ML IV SCH ×2 (14:27→17:23)
[2020-03-08] MEDS ORDERED: heparin 10,000 units/1 ML INJ IV ONE (14:30)
--- NOTE | 2020-03-08 14:34 | NUR ---
Initial: Pt admit w/ pulmonary emboli, hyperlipidemia, R heart strain r/t large clot burden and small saddle emboli in all major pulmonary artery branches per MD. PO 75-100% avg heart healthy meals meeting needs. LBM 03/08 first this admit on opiates; RD d/w RN regarding opioid antagonist if MD agreeable if not significant BM today. No nutrition concerns at this time. Will continue to monitor. Rec: 1. continue heart healthy diet 2. routine bowel care 3. wt per rx Addendum: 03/08/20 at [address] Amended: Links added.
--- NOTE | 2020-03-08 14:38 | NUR ---
Patient given cough medication, barcode did not scan, verified with another RN
--- NOTE | 2020-03-08 15:30 | NUR ---
Report given to Leanna SUTTON in CICU, patient to transfer to 2010. Report called, all belongings sent with patient, patient transferred via wheelchair with heparin infusing at 1300 units/hr, NC at 2L.
[2020-03-08 16:00] LABS: BASOPHILS # (AUTO) 0.1 X10'3 (0-0.2); BASOPHILS % (AUTO) 0.4 % (0-1); EOSINOPHILS % (AUTO) 0 % (0-6); HEMATOCRIT 43.6 % (35.0-45.0); HEMOGLOBIN 14.5 g/dl (12.0-16.0); LYMPHOCYTES # (AUTO) 1.5 X10'3 (1.1-4.8); LYMPHOCYTES % (AUTO) 10.1 % (21-51); MEAN CORPUSCULAR HEMOGLOBIN 30.6 PG (27.0-31.0); MEAN CORPUSCULAR HGB CONC 33.1 g/dL (33.0-36.5); MEAN CORPUSCULAR VOLUME 92.3 FL (78-98); MONOCYTES % (AUTO) 6.7 % (2-12); NEUTROPHILS % (AUTO) 82.8 % (42-75); PLATELET COUNT 287 X10'3 (140-440); RED BLOOD COUNT 4.73 X10'6 (4.20-5.60); RED CELL DISTRIBUTION WIDTH 14.5 % (11.5-14.5); WHITE BLOOD COUNT 14.5 X10'3 (4.5-11.0)
[2020-03-08] MEDS ORDERED: FLUSH 4 MG ICATH SCH (18:00)
[2020-03-08] MEDS ORDERED: ALTEPLASE ICATH SCH (18:00)
[2020-03-08] MEDS ORDERED: TPA CATHFLO ICATH SCH (18:00)
[2020-03-08] MEDS: tPA-cathflo 2mg/2ml IV flush 4 MG in normal saline 100ml IV soln 100 ML ICATH SCH ×2 (18:55→20:49)
[2020-03-08 19:14] LABS: PLATELET ESTIMATE NORMAL; TOTAL CELLS COUNTED 100
[2020-03-08 19:35] LABS: CLARITY,URINE CLEAR (Clear); COLOR,URINE YELLOW (Yellow); GLUCOSE, URINE NEGATIVE (Neg); KETONES,URINE NEGATIVE (Neg); LEUKOCYTE ESTERASE ,URINE NEGATIVE (Neg); NITRITES, URINE NEGATIVE (Neg); OCCULT BLOOD,URINE SMALL (Neg); PROTEIN,URINE NEGATIVE (Neg)
[2020-03-08 19:36] LABS: UA COLLECTION TYPE CLN CATCH MIDSTREAM
[2020-03-08 19:41] LABS: BACTERIA,URINE FEW /HPF (Neg); RBC,URINE 0-2 /HPF (0-2); SQUAMOUS EPITHELIAL CELL,UR MODERATE /LPF (FEW); WBC,URINE 0-4 /HPF (0-4)
[2020-03-08 23:26] LABS: HEMATOCRIT 40.7 % (35.0-45.0); HEMOGLOBIN 13.6 g/dl (12.0-16.0); MEAN CORPUSCULAR HEMOGLOBIN 31.1 PG (27.0-31.0); MEAN CORPUSCULAR HGB CONC 33.5 g/dL (33.0-36.5); MEAN CORPUSCULAR VOLUME 92.7 FL (78-98); MEAN PLATELET VOLUME 7.6 FL (7.4-10.4); PLATELET COUNT 250 X10'3 (140-440); RED BLOOD COUNT 4.39 X10'6 (4.20-5.60); RED CELL DISTRIBUTION WIDTH 14.6 % (11.5-14.5); WHITE BLOOD COUNT 13.4 X10'3 (4.5-11.0)
[2020-03-09] VITALS (23 sets, daily range): BP systolic 98–168; BP diastolic 44–98
[2020-03-09 00:44] LABS: PARTIAL THROMBOPLASTIN TIME 24 SECONDS (22-32)
[2020-03-09] MEDS ORDERED: heparin 10,000 units/1 ML INJ IV ONE (01:00)
[2020-03-09] MEDS: HYDROmorphone/NS 1 mg/ml CADD 50 ML IV SCH ×10 (01:00→21:00)
[2020-03-09] MEDS: morphine ER 30mg tablet PO SCH (01:17)
[2020-03-09] MEDS: methylPREDNISolone sod succ 125mg/2ml vial IV SCH ×3 (01:17→17:28)
[2020-03-09] MEDS: tPA-cathflo 2mg/2ml IV flush 4 MG in normal saline 100ml IV soln 100 ML ICATH SCH ×2 (01:18→05:40)
[2020-03-09] MEDS: oxyCODONE IR 5mg (immed. release) tablet PO PRN (01:27)
[2020-03-09] MEDS: morphine 10mg/0.5ml (conc. morphine) oral syringe PO PRN (03:31)
[2020-03-09] MEDS: lactulose 20gm/30ml cup PO SCH ×4 (03:50→19:55)
[2020-03-09] MEDS ORDERED: iohexol 350MG/ML 100ml bottle IV ONE (03:52)
--- NOTE | 2020-03-09 05:01 | NUR ---
Quentin updated re: results of followup CTA; received orders to continue previous dose of TPA 2mg/hr until further directions from Dr. Blackman. Pain meds ordered changed back to IV CADD and oral meds dc'd.
[2020-03-09 05:16] LABS: BASOPHILS % (AUTO) 0.2 % (0-1); EOSINOPHILS % (AUTO) 0 % (0-6); HEMATOCRIT 41.3 % (35.0-45.0); HEMOGLOBIN 13.5 g/dl (12.0-16.0); LYMPHOCYTES # (AUTO) 1.2 X10'3 (1.1-4.8); LYMPHOCYTES % (AUTO) 9.1 % (21-51); MEAN CORPUSCULAR HEMOGLOBIN 30.3 PG (27.0-31.0); MEAN CORPUSCULAR HGB CONC 32.6 g/dL (33.0-36.5); MEAN PLATELET VOLUME 7.7 FL (7.4-10.4); MONOCYTES # (AUTO) 0.7 X10'3 (0-0.9); NEUTROPHILS # (AUTO) 11.5 X10'3 (1.8-7.7); NEUTROPHILS % (AUTO) 85.7 % (42-75); PLATELET COUNT 269 X10'3 (140-440); RED BLOOD COUNT 4.45 X10'6 (4.20-5.60); RED CELL DISTRIBUTION WIDTH 14.9 % (11.5-14.5); WHITE BLOOD COUNT 13.4 X10'3 (4.5-11.0)
[2020-03-09] MEDS ORDERED: naloxone 0.4 mg/ml inj IV PRN (05:25)
[2020-03-09 05:27] LABS: PARTIAL THROMBOPLASTIN TIME 54 SECONDS (22-32)
[2020-03-09 05:33] LABS: ALANINE AMINOTRANSFERASE 84 U/L (12-78); ALBUMIN 2.8 G/DL (3.4-5.0); ALBUMIN/GLOBULIN RATIO 0.8 (1.1-1.5); ALKALINE PHOSPHATASE 81 IU/L (46-116); ANION GAP 5 (8-16); ASPARTATE AMINO TRANSFERASE 23 U/L (10-37); BILIRUBIN,TOTAL 0.4 MG/DL (0.1-1.0); BLOOD UREA NITROGEN 19 MG/DL (7-18); BUN/CREATININE RATIO 15.7 (6.6-38.0); CALCIUM 8.6 MG/DL (8.5-10.1); CHLORIDE 102 MMOL/L (99-107); CREATININE 1.21 MG/DL (0.40-0.90); GLUCOSE 151 MG/DL (70-104); MAGNESIUM 2.6 MG/DL (1.5-2.4); POTASSIUM 3.6 MMOL/L (3.5-5.1); SODIUM 137 MMOL/L (135-145); TOTAL CARBON DIOXIDE 30.2 MMOL/L (24-32); TOTAL PROTEIN 6.4 G/DL (6.4-8.2); eGFR 47 ML/MIN
--- NOTE | 2020-03-09 06:30 | NUR ---
Patient in room CICU 2010. I have received report from Mac RN and had the opportunity to ask questions and assume patient care.
--- NOTE | 2020-03-09 06:57 | NUR ---
Patient in room CICU 2010. I have received report from Mac RN and had the opportunity to ask questions and assume patient care.
[2020-03-09] MEDS: ipratropium/albuterol 3ml nebule NEB SCH ×3 (07:16→20:12)
[2020-03-09] MEDS: budesonide 0.5mg/2ml UD nebule IH SCH ×2 (07:17→20:12)
[2020-03-09] MEDS: K and/or MAG REPLACEMENT MC SCH ×2 (08:00→20:00)
[2020-03-09] MEDS: atorvastatin 20mg tablet PO SCH (08:07)
[2020-03-09] MEDS: clonazePAM 1mg tablet PO SCH ×3 (08:07→20:00)
[2020-03-09] MEDS: pantoprazole 40mg Tablet.DR PO SCH (08:07)
[2020-03-09] MEDS: gabapentin 400mg capsule PO SCH ×2 (08:07→19:55)
[2020-03-09] MEDS: nicotine 14mg patch - 24hr TD SCH (08:08)
[2020-03-09] MEDS ORDERED: alteplase 100MG inj. 100 ML IV ONE (10:50)
[2020-03-09] MEDS: apixaban 2.5mg tablet PO SCH ×2 (11:35→19:54)
--- NOTE | 2020-03-09 11:50 | NUR ---
Verbal order from Dr Blackman to increase Dilaudid to increase dose to 0.4 from 0.2. Increase done with witness from Arcadio SUTTON
[2020-03-09 12:24] LABS: PARTIAL THROMBOPLASTIN TIME 23 SECONDS (22-32)
--- NOTE | 2020-03-09 18:15 | NUR ---
Patient in room CICU 2010. I have received report from Maddy SUTTON and had the opportunity to ask questions and assume patient care.
--- NOTE | 2020-03-09 18:20 | NUR ---
Problems reprioritized. Patient report given, questions answered & plan of care reviewed with Chen SUTTON.
[2020-03-09] MEDS: guaiFENesin/DM 10ml UD oral syrup PO PRN (19:56)
[2020-03-10] VITALS (17 sets, daily range): BP systolic 107–162; BP diastolic 61–96
[2020-03-10] MEDS: HYDROmorphone/NS 1 mg/ml CADD 50 ML IV SCH ×12 (01:00→23:00)
[2020-03-10] MEDS: methylPREDNISolone sod succ 125mg/2ml vial IV SCH ×3 (01:23→15:53)
[2020-03-10] MEDS: lactulose 20gm/30ml cup PO SCH ×5 (01:36→20:33)
[2020-03-10 05:21] LABS: BASOPHILS % (AUTO) 0.3 % (0-1); EOSINOPHILS % (AUTO) 0.1 % (0-6); HEMATOCRIT 41.9 % (35.0-45.0); HEMOGLOBIN 13.6 g/dl (12.0-16.0); LYMPHOCYTES # (AUTO) 1.2 X10'3 (1.1-4.8); LYMPHOCYTES % (AUTO) 6.6 % (21-51); MEAN CORPUSCULAR HEMOGLOBIN 30.2 PG (27.0-31.0); MEAN CORPUSCULAR HGB CONC 32.5 g/dL (33.0-36.5); MEAN CORPUSCULAR VOLUME 92.8 FL (78-98); MEAN PLATELET VOLUME 7.8 FL (7.4-10.4); MONOCYTES % (AUTO) 5.5 % (2-12); NEUTROPHILS # (AUTO) 15.4 X10'3 (1.8-7.7); NEUTROPHILS % (AUTO) 87.5 % (42-75); PLATELET COUNT 289 X10'3 (140-440); RED BLOOD COUNT 4.52 X10'6 (4.20-5.60); RED CELL DISTRIBUTION WIDTH 14.6 % (11.5-14.5); WHITE BLOOD COUNT 17.6 X10'3 (4.5-11.0)
[2020-03-10 05:29] LABS: ALANINE AMINOTRANSFERASE 61 U/L (12-78); ALBUMIN 2.7 G/DL (3.4-5.0); ALBUMIN/GLOBULIN RATIO 0.8 (1.1-1.5); ALKALINE PHOSPHATASE 69 IU/L (46-116); ANION GAP 4 (8-16); ASPARTATE AMINO TRANSFERASE 14 U/L (10-37); BILIRUBIN,TOTAL 0.3 MG/DL (0.1-1.0); BLOOD UREA NITROGEN 22 MG/DL (7-18); BUN/CREATININE RATIO 20.2 (6.6-38.0); CALCIUM 8.6 MG/DL (8.5-10.1); CHLORIDE 103 MMOL/L (99-107); CREATININE 1.09 MG/DL (0.40-0.90); GLUCOSE 137 MG/DL (70-104); MAGNESIUM 2.5 MG/DL (1.5-2.4); POTASSIUM 4.1 MMOL/L (3.5-5.1); SODIUM 139 MMOL/L (135-145); TOTAL CARBON DIOXIDE 31.6 MMOL/L (24-32); TOTAL PROTEIN 6.1 G/DL (6.4-8.2); eGFR 53 ML/MIN
--- NOTE | 2020-03-10 06:15 | NUR ---
Problems reprioritized. Patient report given, questions answered & plan of care reviewed with Orin SUTTON.
--- NOTE | 2020-03-10 06:15 | NUR ---
Patient in room CICU 2010. I have received report from Chen and had the opportunity to ask questions and assume patient care.
[2020-03-10] MEDS: K and/or MAG REPLACEMENT MC SCH ×2 (06:21→20:00)
[2020-03-10 07:21] LABS: TOTAL CELLS COUNTED 100
[2020-03-10 07:22] LABS: ANISOCYTOSIS 1+; PLATELET ESTIMATE NORMAL
[2020-03-10] MEDS: budesonide 0.5mg/2ml UD nebule IH SCH ×2 (07:28→20:24)
[2020-03-10] MEDS: ipratropium/albuterol 3ml nebule NEB SCH ×3 (07:28→20:23)
[2020-03-10] MEDS: nicotine 14mg patch - 24hr TD SCH (08:12)
[2020-03-10] MEDS: gabapentin 400mg capsule PO SCH ×2 (08:12→20:33)
[2020-03-10] MEDS: pantoprazole 40mg Tablet.DR PO SCH (08:12)
[2020-03-10] MEDS: atorvastatin 20mg tablet PO SCH (08:12)
[2020-03-10] MEDS: clonazePAM 1mg tablet PO SCH ×3 (08:12→20:33)
[2020-03-10] MEDS: apixaban 2.5mg tablet PO SCH (08:12)
[2020-03-10] MEDS ORDERED: LORazepam 1 MG tablet PO ONE (11:20)
[2020-03-10] MEDS: CADD PCA waste documentation MC PRN (15:58)
--- NOTE | 2020-03-10 17:15 | NUR ---
Patient in room PCU 3014. I have received report from Orin SUTTON and had the opportunity to ask questions and assume patient care.
--- NOTE | 2020-03-10 17:22 | NUR ---
Report called to Zach on PCU. Pt tx up to room 3014-B via wheelchair with all personal belongings.
--- NOTE | 2020-03-10 17:39 | NUR ---
Patient stable, oriented to new room, belongings in closet, gifts and gale stayed with patient, VS 98.6, 126/75, HR 66, RR 18, 94%, 2L NC tele started, Cadd pump working.
--- NOTE | 2020-03-10 18:25 | NUR ---
Problems reprioritized. Patient report given, questions answered & plan of care reviewed with Carrie SUTTON.
--- NOTE | 2020-03-10 18:32 | NUR ---
Patient in room PCU 3014. I have received report from Zach SUTTON and had the opportunity to ask questions and assume patient care.
[2020-03-10] MEDS: apixaban 5mg tablet PO SCH (20:33)
[2020-03-10] MEDS: guaiFENesin/DM 10ml UD oral syrup PO PRN (20:37)
[2020-03-11] MEDS: methylPREDNISolone sod succ 125mg/2ml vial IV SCH ×2 (00:51→07:39)
[2020-03-11] MEDS: HYDROmorphone/NS 1 mg/ml CADD 50 ML IV SCH ×12 (01:00→21:39)
[2020-03-11 02:00] VITALS: BP 112/55
[2020-03-11] MEDS: lactulose 20gm/30ml cup PO SCH ×4 (03:40→19:20)
[2020-03-11 05:03] LABS: BASOPHILS % (AUTO) 0.2 % (0-1); EOSINOPHILS # (AUTO) 0.1 X10'3 (0-0.9); EOSINOPHILS % (AUTO) 0.4 % (0-6); HEMOGLOBIN 13.3 g/dl (12.0-16.0); LYMPHOCYTES # (AUTO) 1.1 X10'3 (1.1-4.8); LYMPHOCYTES % (AUTO) 6.1 % (21-51); MEAN CORPUSCULAR HEMOGLOBIN 30.5 PG (27.0-31.0); MEAN CORPUSCULAR HGB CONC 33.2 g/dL (33.0-36.5); MEAN CORPUSCULAR VOLUME 91.8 FL (78-98); MEAN PLATELET VOLUME 7.6 FL (7.4-10.4); MONOCYTES # (AUTO) 0.8 X10'3 (0-0.9); MONOCYTES % (AUTO) 4.5 % (2-12); NEUTROPHILS # (AUTO) 15.3 X10'3 (1.8-7.7); NEUTROPHILS % (AUTO) 88.8 % (42-75); PLATELET COUNT 279 X10'3 (140-440); RED BLOOD COUNT 4.36 X10'6 (4.20-5.60); RED CELL DISTRIBUTION WIDTH 15.1 % (11.5-14.5); WHITE BLOOD COUNT 17.2 X10'3 (4.5-11.0)
[2020-03-11 05:12] LABS: ALANINE AMINOTRANSFERASE 45 U/L (12-78); ALBUMIN 2.6 G/DL (3.4-5.0); ALBUMIN/GLOBULIN RATIO 0.8 (1.1-1.5); ALKALINE PHOSPHATASE 65 IU/L (46-116); ANION GAP 6 (8-16); ASPARTATE AMINO TRANSFERASE 10 U/L (10-37); BILIRUBIN,TOTAL 0.3 MG/DL (0.1-1.0); BLOOD UREA NITROGEN 24 MG/DL (7-18); BUN/CREATININE RATIO 23.5 (6.6-38.0); CHLORIDE 104 MMOL/L (99-107); CREATININE 1.02 MG/DL (0.40-0.90); GLUCOSE 121 MG/DL (70-104); POTASSIUM 3.9 MMOL/L (3.5-5.1); SODIUM 139 MMOL/L (135-145); TOTAL CARBON DIOXIDE 29.1 MMOL/L (24-32); TOTAL PROTEIN 5.9 G/DL (6.4-8.2); eGFR 57 ML/MIN
[2020-03-11 06:30] VITALS: BP 144/86
--- NOTE | 2020-03-11 06:30 | NUR ---
Patient in room PCU 3014A. I have received report from Carrie SUTTON and had the opportunity to ask questions and assume patient care.
[2020-03-11] MEDS: clonazePAM 1mg tablet PO SCH ×3 (07:39→20:38)
[2020-03-11] MEDS: apixaban 5mg tablet PO SCH ×2 (07:39→19:19)
[2020-03-11] MEDS: gabapentin 400mg capsule PO SCH ×2 (07:39→19:20)
[2020-03-11] MEDS: nicotine 14mg patch - 24hr TD SCH (07:39)
[2020-03-11] MEDS: pantoprazole 40mg Tablet.DR PO SCH (07:39)
[2020-03-11] MEDS: atorvastatin 20mg tablet PO SCH (07:40)
[2020-03-11] MEDS: K and/or MAG REPLACEMENT MC SCH ×2 (08:00→19:00)
--- NOTE | 2020-03-11 08:13 | NUR ---
Problems reprioritized. Patient report given, questions answered & plan of care reviewed with Radha SUTTON.
[2020-03-11] MEDS: ipratropium/albuterol 3ml nebule NEB SCH ×3 (08:14→20:36)
[2020-03-11] MEDS: budesonide 0.5mg/2ml UD nebule IH SCH ×2 (08:14→20:37)
[2020-03-11 08:26] LABS: TOTAL CELLS COUNTED 100
[2020-03-11 08:27] LABS: PLATELET ESTIMATE NORMAL; STOMATOCYTES 1+
[2020-03-11 11:00] VITALS: BP 134/84
[2020-03-11 15:00] VITALS: BP 163/96
[2020-03-11] MEDS: LORazepam 1 MG tablet PO PRN ×2 (15:55→23:53)
[2020-03-11 18:00] VITALS: BP 126/70
--- NOTE | 2020-03-11 18:04 | NUR ---
Problems reprioritized. Patient report given, questions answered & plan of care reviewed with Charlene SUTTON.
[2020-03-11] MEDS: methadone 10mg tablet PO SCH (19:19)
[2020-03-11] MEDS: magnesium hydroxide 30ml (MOM) UD suspension PO PRN (20:38)
[2020-03-11] MEDS: CADD PCA waste documentation MC PRN (21:41)
[2020-03-11 22:00] VITALS: BP 100/61
--- NOTE | 2020-03-11 23:00 | NUR ---
2300 CADD check is as follows: 210 doses given/ 693 attempts 97.60mg given 48.5 residual volume. Timing was off on the EMAR because a new canister was placed so documenting 2300 check here and not on the EMAR.
[2020-03-12] MEDS: HYDROmorphone/NS 1 mg/ml CADD 50 ML IV SCH ×9 (01:00→17:00)
[2020-03-12 02:00] VITALS: BP 93/54
[2020-03-12] MEDS: lactulose 20gm/30ml cup PO SCH ×4 (02:34→19:37)
--- NOTE | 2020-03-12 04:39 | NUR ---
promotional table spacer PAGER ID: [phone] MESSAGE: Patient Treasure Friend RM [id number] Patient does not have morning labs ordered this AM. She has been getting a daily CBC and CMP. Can I order that for this morning as well? Thank you. Charlene SUTTON ext. [phone]
[2020-03-12] MEDS: LORazepam 1 MG tablet PO PRN ×3 (05:19→17:14)
[2020-03-12 05:21] LABS: BASOPHILS # (AUTO) 0.1 X10'3 (0-0.2); HEMOGLOBIN 13.6 g/dl (12.0-16.0); MEAN CORPUSCULAR HEMOGLOBIN 30.4 PG (27.0-31.0); MONOCYTES # (AUTO) 1.2 X10'3 (0-0.9)
[2020-03-12 05:23] LABS: BASOPHILS % (AUTO) 0.5 % (0-1); EOSINOPHILS % (AUTO) 0.2 % (0-6); HEMATOCRIT 41.5 % (35.0-45.0); LYMPHOCYTES # (AUTO) 2.5 X10'3 (1.1-4.8); LYMPHOCYTES % (AUTO) 15.3 % (21-51); MEAN CORPUSCULAR HGB CONC 32.8 g/dL (33.0-36.5); MEAN CORPUSCULAR VOLUME 92.8 FL (78-98); MEAN PLATELET VOLUME 7.3 FL (7.4-10.4); MONOCYTES % (AUTO) 7.6 % (2-12); NEUTROPHILS # (AUTO) 12.3 X10'3 (1.8-7.7); NEUTROPHILS % (AUTO) 76.4 % (42-75); PLATELET COUNT 275 X10'3 (140-440); RED BLOOD COUNT 4.47 X10'6 (4.20-5.60); RED CELL DISTRIBUTION WIDTH 15.4 % (11.5-14.5); WHITE BLOOD COUNT 16.2 X10'3 (4.5-11.0)
[2020-03-12 05:34] LABS: ALANINE AMINOTRANSFERASE 43 U/L (12-78); ALBUMIN 2.7 G/DL (3.4-5.0); ALBUMIN/GLOBULIN RATIO 0.8 (1.1-1.5); ALKALINE PHOSPHATASE 59 IU/L (46-116); ANION GAP 5 (8-16); ASPARTATE AMINO TRANSFERASE 16 U/L (10-37); BILIRUBIN,TOTAL 0.3 MG/DL (0.1-1.0); BLOOD UREA NITROGEN 21 MG/DL (7-18); BUN/CREATININE RATIO 18.6 (6.6-38.0); CALCIUM 8.2 MG/DL (8.5-10.1); CHLORIDE 104 MMOL/L (99-107); CREATININE 1.13 MG/DL (0.40-0.90); GLUCOSE 94 MG/DL (70-104); SODIUM 141 MMOL/L (135-145); TOTAL CARBON DIOXIDE 31.8 MMOL/L (24-32); TOTAL PROTEIN 5.9 G/DL (6.4-8.2); eGFR 51 ML/MIN
[2020-03-12 06:00] VITALS: BP 121/74
--- NOTE | 2020-03-12 06:35 | NUR ---
Patient in room PCU 3014. I have received report from HERMAN CLEVELAND and had the opportunity to ask questions and assume patient care.
--- NOTE | 2020-03-12 06:44 | NUR ---
Problems reprioritized. Patient report given, questions answered & plan of care reviewed with Dayton RN.
[2020-03-12] MEDS: budesonide 0.5mg/2ml UD nebule IH SCH ×2 (07:41→20:24)
[2020-03-12] MEDS: ipratropium/albuterol 3ml nebule NEB SCH ×3 (07:41→20:24)
[2020-03-12 07:42] LABS: TOTAL CELLS COUNTED 100
[2020-03-12 07:43] LABS: PLATELET ESTIMATE NORMAL; TOXIC GRANULATION 1+
[2020-03-12 07:44] LABS: TOXIC VACUOLATION FEW
[2020-03-12] MEDS: K and/or MAG REPLACEMENT MC SCH ×2 (08:00→19:00)
[2020-03-12] MEDS: pantoprazole 40mg Tablet.DR PO SCH (08:04)
[2020-03-12] MEDS: nicotine 14mg patch - 24hr TD SCH (08:05)
[2020-03-12] MEDS: gabapentin 400mg capsule PO SCH ×2 (08:07→19:39)
[2020-03-12] MEDS: atorvastatin 20mg tablet PO SCH (08:07)
[2020-03-12] MEDS: apixaban 5mg tablet PO SCH ×2 (08:07→19:38)
[2020-03-12] MEDS: clonazePAM 1mg tablet PO SCH ×3 (08:07→21:00)
[2020-03-12 11:00] VITALS: BP 108/65
[2020-03-12 15:00] VITALS: BP 113/66
[2020-03-12 18:00] VITALS: BP 139/88
--- NOTE | 2020-03-12 18:34 | NUR ---
Problems reprioritized. Patient report given, questions answered & plan of care reviewed with HERMAN CLEVELAND.
--- NOTE | 2020-03-12 18:45 | NUR ---
Patient in room PCU 3014. I have received report from Dayton SUTTON and had the opportunity to ask questions and assume patient care. Patient was awake during report and resting comfortably.
[2020-03-12] MEDS: methadone 10mg tablet PO SCH ×2 (19:38→21:00)
[2020-03-12] MEDS: HYDROcodone/acetaminophen 10/325mg tab PO PRN (19:43)
[2020-03-12] MEDS: magnesium hydroxide 30ml (MOM) UD suspension PO PRN (19:47)
[2020-03-12] MEDS: CADD PCA waste documentation MC PRN (20:03)
[2020-03-12 22:00] VITALS: BP 108/65
--- NOTE | 2020-03-12 22:50 | NUR ---
Patient was assisted to the restroom and instructed to pull the string when she was ready to be ambulated back to bed. She was stable upon ambulation to the bathroom and said that she understood the instructions. Upon returning to the patients room to check on her, I found her on her knees saying that she slipped and fell. Patient was wearing non-skid socks. There was no evidence of injury and the patient was requesting additional pain medication after the fall. Vital signs stable. Assisted patient back in bed. Bed low in locked position and instructed patient not to get up without assistance. Call light within reach.
--- NOTE | 2020-03-12 23:27 | NUR ---
PAGER ID: [phone] MESSAGE: Patient Treasure Friend RM [id number] Patient had a unwitnessed fall when ambulating back from the bathroom. She states that she hit her head on the bed but there are no visible injuries and neuro checks within normal limits. Charlene SUTTON ext. [phone]
--- NOTE | 2020-03-12 23:46 | NUR ---
Dr. Merrill notified of patient's fall. He said continue to monitor. No new orders.
[2020-03-13] MEDS: HYDROcodone/acetaminophen 10/325mg tab PO PRN ×4 (00:47→16:44)
[2020-03-13 02:00] VITALS: BP 100/55
[2020-03-13] MEDS: lactulose 20gm/30ml cup PO SCH ×4 (02:00→20:16)
[2020-03-13] MEDS: LORazepam 1 MG tablet PO PRN ×3 (02:03→14:18)
--- NOTE | 2020-03-13 03:54 | NUR ---
Orientee documentation: I have reviewed and agree with all interventions, assessments performed and documented by Yahaira SUTTON. [place] Medication Administration: For this medication-pass time frame, all medication were reviewed, dispensed, administered and documented per hospital policy by Yahaira SUTTON.
--- NOTE | 2020-03-13 06:24 | NUR ---
Problems reprioritized. Patient report given, questions answered & plan of care reviewed with Radha SUTTON.
--- NOTE | 2020-03-13 06:26 | NUR ---
Problems reprioritized. Patient report given, questions answered & plan of care reviewed with Radha SUTTON. Patient was resting comfortably during report.
--- NOTE | 2020-03-13 06:28 | NUR ---
Patient in room PCU 3014A. I have received report from Charlene SUTTON and Leela SUTTON and had the opportunity to ask questions and assume patient care.
[2020-03-13 06:30] VITALS: BP 100/45
[2020-03-13] MEDS: budesonide 0.5mg/2ml UD nebule IH SCH ×2 (06:56→19:54)
[2020-03-13] MEDS: ipratropium/albuterol 3ml nebule NEB SCH ×3 (06:56→19:55)
[2020-03-13] MEDS: gabapentin 400mg capsule PO SCH ×2 (07:37→20:14)
[2020-03-13] MEDS: apixaban 5mg tablet PO SCH ×2 (07:37→20:14)
[2020-03-13] MEDS: pantoprazole 40mg Tablet.DR PO SCH (07:37)
[2020-03-13] MEDS: nicotine 14mg patch - 24hr TD SCH (07:37)
[2020-03-13] MEDS: atorvastatin 20mg tablet PO SCH (07:38)
[2020-03-13] MEDS: clonazePAM 1mg tablet PO SCH ×3 (07:38→20:14)
[2020-03-13] MEDS: K and/or MAG REPLACEMENT MC SCH ×2 (08:00→20:00)
[2020-03-13] MEDS: predniSONE 20 mg tablet PO SCH (09:28)
[2020-03-13 11:00] VITALS: BP 101/66
[2020-03-13 11:04] LABS: ANTITHROMBIN ACTIVITY 121 % (75-135); ANTITHROMBIN ANTIGEN 120 % (72-124); PROTEIN S, FREE 161 % (57-157); PROTEIN S, TOTAL 143 % (60-150)
[2020-03-13 11:41] LABS: BASOPHILS # (AUTO) 0.1 X10'3 (0-0.2); BASOPHILS % (AUTO) 0.5 % (0-1); EOSINOPHILS # (AUTO) 0.2 X10'3 (0-0.9); EOSINOPHILS % (AUTO) 1.2 % (0-6); HEMATOCRIT 41.6 % (35.0-45.0); HEMOGLOBIN 13.7 g/dl (12.0-16.0); LYMPHOCYTES # (AUTO) 2.8 X10'3 (1.1-4.8); LYMPHOCYTES % (AUTO) 17.8 % (21-51); MEAN CORPUSCULAR HEMOGLOBIN 30.5 PG (27.0-31.0); MEAN CORPUSCULAR VOLUME 92.5 FL (78-98); MEAN PLATELET VOLUME 7.4 FL (7.4-10.4); MONOCYTES # (AUTO) 1.1 X10'3 (0-0.9); MONOCYTES % (AUTO) 7.1 % (2-12); NEUTROPHILS # (AUTO) 11.5 X10'3 (1.8-7.7); NEUTROPHILS % (AUTO) 73.4 % (42-75); PLATELET COUNT 236 X10'3 (140-440); RED BLOOD COUNT 4.49 X10'6 (4.20-5.60); RED CELL DISTRIBUTION WIDTH 15.3 % (11.5-14.5); WHITE BLOOD COUNT 15.6 X10'3 (4.5-11.0)
[2020-03-13 12:01] LABS: ALANINE AMINOTRANSFERASE 40 U/L (12-78); ALBUMIN 2.7 G/DL (3.4-5.0); ALBUMIN/GLOBULIN RATIO 0.9 (1.1-1.5); ALKALINE PHOSPHATASE 67 IU/L (46-116); ANION GAP 3 (8-16); ASPARTATE AMINO TRANSFERASE 18 U/L (10-37); BILIRUBIN,TOTAL 0.3 MG/DL (0.1-1.0); BLOOD UREA NITROGEN 21 MG/DL (7-18); BUN/CREATININE RATIO 20.2 (6.6-38.0); CALCIUM 8.4 MG/DL (8.5-10.1); CHLORIDE 102 MMOL/L (99-107); CREATININE 1.04 MG/DL (0.40-0.90); GLUCOSE 113 MG/DL (70-104); POTASSIUM 4.1 MMOL/L (3.5-5.1); SODIUM 138 MMOL/L (135-145); TOTAL CARBON DIOXIDE 32.6 MMOL/L (24-32); TOTAL PROTEIN 5.8 G/DL (6.4-8.2); eGFR 56 ML/MIN
[2020-03-13 13:02] LABS: PLATELET ESTIMATE NORMAL; TOTAL CELLS COUNTED 100
[2020-03-13 13:03] LABS: TOXIC GRANULATION 2+; TOXIC VACUOLATION FEW
[2020-03-13 13:04] LABS: SMUDGE CELLS 1+
--- NOTE | 2020-03-13 13:33 | NUR ---
Reassessment: Patient is eating 75-100%; heart healthy diet. Meeting needs no nutrition problem. Rec: 1. continue heart healthy diet 2. routine bowel care 3. wt per rx Addendum: 03/13/20 at [address] Amended: Links added.
[2020-03-13 15:00] VITALS: BP 110/76
--- NOTE | 2020-03-13 15:22 | NUR ---
paged regarding pt not having bowel movement PAGER ID: [phone] MESSAGE: Radha NOWAK. RE Kam Friend [id number]. FYI pt hasn't had bowel movement in "many days" per pt. (Was on diluadid cadd, gets PRN Howard). Getting scheduled lactulose and PRN milk of mag. Do you want any further bowel care orders? Pt is passing gas
[2020-03-13] MEDS ORDERED: methylnaltrexone br 12mg/0.6ml inj***SubQ only SQ SCH (15:25)
--- NOTE | 2020-03-13 16:46 | NUR ---
After administering Relistor, patient had large soft bowel movement
[2020-03-13 18:00] VITALS: BP 123/79
--- NOTE | 2020-03-13 18:09 | NUR ---
Problems reprioritized. Patient report given, questions answered & plan of care reviewed with Charlene SUTTON and Leela SUTTON.
--- NOTE | 2020-03-13 18:28 | NUR ---
Patient in room PCU 3014. I have received report from Radha SUTTON and had the opportunity to ask questions and assume patient care. Patient was awake during report and no acute distress noted.
[2020-03-13] MEDS: methadone 10mg tablet PO SCH (20:11)
[2020-03-13] MEDS: oxyCODONE IR 5mg (immed. release) tablet PO PRN (20:16)
[2020-03-13 22:00] VITALS: BP 97/59
[2020-03-14 02:00] VITALS: BP 96/63
[2020-03-14] MEDS: lactulose 20gm/30ml cup PO SCH ×2 (02:00→07:06)
[2020-03-14] MEDS: oxyCODONE IR 5mg (immed. release) tablet PO PRN ×3 (04:12→12:41)
[2020-03-14 06:00] VITALS: BP 98/54
--- NOTE | 2020-03-14 06:25 | NUR ---
Problems reprioritized. Patient report given, questions answered & plan of care reviewed with Bridgette SUTTON.
--- NOTE | 2020-03-14 06:25 | NUR ---
Patient in room PCU 3014. I have received report from Christoph SUTTON and had the opportunity to ask questions and assume patient care.
[2020-03-14] MEDS: predniSONE 20 mg tablet PO SCH (07:05)
[2020-03-14] MEDS: clonazePAM 1mg tablet PO SCH ×2 (07:05→12:41)
[2020-03-14] MEDS: pantoprazole 40mg Tablet.DR PO SCH (07:05)
[2020-03-14] MEDS: apixaban 5mg tablet PO SCH (07:05)
[2020-03-14] MEDS: gabapentin 400mg capsule PO SCH (07:05)
[2020-03-14] MEDS: atorvastatin 20mg tablet PO SCH (07:05)
[2020-03-14] MEDS: nicotine 14mg patch - 24hr TD SCH (07:06)
[2020-03-14] MEDS: K and/or MAG REPLACEMENT MC SCH (07:10)
[2020-03-14] MEDS: ipratropium/albuterol 3ml nebule NEB SCH (08:33)
[2020-03-14] MEDS: budesonide 0.5mg/2ml UD nebule IH SCH (08:33)
[2020-03-14] MEDS: LORazepam 1 MG tablet PO PRN (10:50)
[2020-03-14 11:00] VITALS: BP 128/80
--- NOTE | 2020-03-14 12:29 | NUR ---
Attempted to call [facility] to give report on this patient, was told the nursing staff would call me back when they are ready, will continue to monitor the patient closely.
--- NOTE | 2020-03-14 13:14 | NUR ---
Called report to [facility] and gave report to Baljinder HOWELL.
--- NOTE | 2020-03-14 14:20 | NUR ---
Stable for transfer per MD order, report called to [facility] and spoke with Baljinder HOWELL, Tele monitor and PIV discontinued, all belongings collected and sent with the patient, left the unit 1415 with transport personnel and nurses aide
== END 2020-03-14 14:15 | DRG 134 ==
LOC: ER 13:02 → ED HOLD 15:32 → PCU 3S 16:37 → CICU 2S 03-08 16:05 → PCU 3S 03-10 17:20
PROVIDERS: ADMIT Family Medicine; ATTEND Family Medicine
PROC: B32T1ZZ Computerized Tomography (CT Scan) of Left Pulmonary Artery using Low Osmolar Contrast (ICD-10-PCS; principal; 2020-03-09)
PROC: B32S1ZZ Computerized Tomography (CT Scan) of Right Pulmonary Artery using Low Osmolar Contrast (ICD-10-PCS; 2020-03-09)
DX: I26.92 Saddle embolus of pulmonary artery without acute cor pulmonale (principal); J96.01 Acute respiratory failure with hypoxia; N17.0 Acute kidney failure with tubular necrosis; E78.00 Pure hypercholesterolemia, unspecified; E86.0 Dehydration; F11.90 Opioid use, unspecified, uncomplicated; F17.210 Nicotine dependence, cigarettes, uncomplicated; J44.9 Chronic obstructive pulmonary disease, unspecified; I10 Essential (primary) hypertension; M54.9 Dorsalgia, unspecified; E78.5 Hyperlipidemia, unspecified; F41.1 Generalized anxiety disorder; G89.29 Other chronic pain; F41.9 Anxiety disorder, unspecified; Z79.899 Other long term (current) drug therapy; Z82.49 Family history of ischemic heart disease and other diseases of the circulatory system; Z83.3 Family history of diabetes mellitus; Z90.710 Acquired absence of both cervix and uterus; Z95.1 Presence of aortocoronary bypass graft; Z98.891 History of uterine scar from previous surgery; Z79.01 Long term (current) use of anticoagulants; Z88.5 Allergy status to narcotic agent
CPT/HCPCS: 36415; 71045; 71275; 74018; 76937; 80053; 80061; 81001; 83690; 83735; 83880; 83891; 84484; 85007; 85025; 85027; 85300; 85301; 85303; 85305; 85306; 85379; 85384; 85610; 85730; 86146; 86147; 87081; 93005; 93306; 93970; 94640; 94760; 97110; 97116; 97161; 97530; 99285; G0378; J1170; J1644; J1940; J2212; J2270; J2405; J2930; J2997; J3480; J7030; J7512; J7626; Q9967

== ENCOUNTER 2020-12-19 12:02 | Inpatient (IN) | payer MEDICAID ==
[~2020-12-19] VITALS: Ht 160 cm; Wt 115.0 kg
[~2020-12-19 12:02] MED LIST changes: -CARI350T PO; +GABA-534 PO; -HYDR-4353 PO; +LANS15CA10 PO; +LISI20TA28 PO; -ONDA4TAB6 PO; -ONDA8TAB9 PO
[2020-12-19] MEDS ORDERED: albuterol 2.5 MG/3 ML nebule NEB ONE (12:15)
--- NOTE | 2020-12-19 12:34 | NUR ---
rt at bedside giving breathing tx to the pt.
--- NOTE | 2020-12-19 12:34 | NUR ---
LABS,[id number]
[2020-12-19 12:57] LABS: BASOPHILS # (AUTO) 0.1 X10'3 (0-0.2); BASOPHILS % (AUTO) 0.6 % (0-1); EOSINOPHILS # (AUTO) 0.1 X10'3 (0-0.9); EOSINOPHILS % (AUTO) 1.2 % (0-6); HEMATOCRIT 44.8 % (35.0-45.0); HEMOGLOBIN 14.8 g/dl (12.0-16.0); LYMPHOCYTES # (AUTO) 2.7 X10'3 (1.1-4.8); LYMPHOCYTES % (AUTO) 27.8 % (21-51); MEAN CORPUSCULAR HEMOGLOBIN 29.7 PG (27.0-31.0); MEAN CORPUSCULAR HGB CONC 33.1 g/dL (33.0-36.5); MEAN CORPUSCULAR VOLUME 89.7 FL (78-98); MEAN PLATELET VOLUME 8.2 FL (7.4-10.4); MONOCYTES # (AUTO) 0.6 X10'3 (0-0.9); MONOCYTES % (AUTO) 6.7 % (2-12); NEUTROPHILS # (AUTO) 6.1 X10'3 (1.8-7.7); NEUTROPHILS % (AUTO) 63.7 % (42-75); PLATELET COUNT 202 X10'3 (140-440); RED BLOOD COUNT 4.99 X10'6 (4.20-5.60); RED CELL DISTRIBUTION WIDTH 16.5 % (11.5-14.5); WHITE BLOOD COUNT 9.6 X10'3 (4.5-11.0)
--- NOTE | 2020-12-19 13:17 | NUR ---
notified hai clark that pt spo2 is 91 on 3l and pt is drowsy and feel weak ,also mentioned that she had lung clot in past and had same symp ,pt denies to take bld thinner.hai burn aware to orders.
[2020-12-19 13:18] LABS: ALANINE AMINOTRANSFERASE 99 U/L (12-78); ALBUMIN 3.1 G/DL (3.4-5.0); ALBUMIN/GLOBULIN RATIO 0.7 (1.1-1.5); ALKALINE PHOSPHATASE 161 IU/L (46-116); ANION GAP 10 (8-16); ASPARTATE AMINO TRANSFERASE 44 U/L (10-37); BILIRUBIN,TOTAL 0.5 MG/DL (0.1-1.0); BLOOD UREA NITROGEN 12 MG/DL (7-18); BUN/CREATININE RATIO 10.9 (6.6-38.0); CALCIUM 9.2 MG/DL (8.5-10.1); CHLORIDE 105 MMOL/L (99-107); GLUCOSE 105 MG/DL (70-104); POTASSIUM 3.6 MMOL/L (3.5-5.1); SODIUM 144 MMOL/L (135-145); TOTAL CARBON DIOXIDE 29.4 MMOL/L (24-32); TOTAL PROTEIN 7.5 G/DL (6.4-8.2); eGFR 52 ML/MIN
--- NOTE | 2020-12-19 13:55 | NUR ---
BLOOD DRAWN FROM IV LINE FOR D DIMER TEST.
[2020-12-19 14:23] LABS: D-DIMER 3.24 MG/L FEU (0-0.50)
[2020-12-19 14:39] LABS: URINE AMPHETAMINE SCREEN NEGATIVE (Neg); URINE BARBITUATE SCREEN NEGATIVE (Neg); URINE BENZODIAZEPINES SCREEN NEGATIVE (Neg); URINE CANNABINOID SCREEN NEGATIVE (Neg); URINE COCAINE SCREEN NEGATIVE (Neg); URINE METHADONE SCREEN POSITIVE (Neg); URINE OPIATE SCREEN NEGATIVE (Neg); URINE PHENCYCLIDINE SCREEN NEGATIVE (Neg)
[2020-12-19] MEDS ORDERED: iohexol 350MG/ML 100ml bottle IV ONE (15:08)
[2020-12-19] MEDS ORDERED: heparin 10,000 units/1 ML INJ IV ONE ×2 (16:35→16:45)
[2020-12-19] MEDS ORDERED: normal saline 1000ML IV soln IVB ONE (16:45)
[2020-12-19] MEDS ORDERED: ondansetron/PF 4mg/2ml inj IV PRN (17:00)
[2020-12-19] MEDS ORDERED: mag hydrox/Alum hydrox/simeth 30ml oral suspension PO PRN (17:00)
[2020-12-19] MEDS ORDERED: magnesium hydroxide 30ml (MOM) UD suspension PO PRN (17:00)
[2020-12-19] MEDS ORDERED: acetaminophen 325mg tablet PO PRN (17:00)
[2020-12-19] MEDS ORDERED: morphine 2 MG/ML inj. syringe IV PRN (17:00)
[2020-12-19] MEDS: heparin 25,000 UNIT/250ml bag 250 ML IV SCH (17:03)
[2020-12-19] MEDS ORDERED: CLON-527 PO (17:11)
[2020-12-19] MEDS ORDERED: LISI20TA28 PO (17:11)
[2020-12-19] MEDS ORDERED: ATOR40TA7 PO (17:11)
[2020-12-19] MEDS ORDERED: LEVO25TA7 PO (17:11)
--- NOTE | 2020-12-19 18:15 | NUR ---
SALES FORCE ADMINISTRATOR AT BEDSIDE.
[2020-12-19] MEDS: normal saline 1000ml 1,000 ML IV SCH (18:30)
[2020-12-19 20:35] VITALS: BP 155/95
[2020-12-19] MEDS ORDERED: heparin 10,000 units/1 ML INJ IV PRN (20:35)
[2020-12-19] MEDS: clonazePAM 1mg tablet PO SCH (20:46)
[2020-12-19] MEDS: albuterol 2.5 MG/3 ML nebule NEB PRN (21:55)
[2020-12-19] MEDS: methylPREDNISolone sod succ 125mg/2ml vial IV SCH (22:51)
[2020-12-19 22:53] VITALS: BP 132/94
[2020-12-20] MEDS: morphine 2 MG/ML inj. syringe IV PRN ×3 (00:55→18:34)
[2020-12-20] MEDS: normal saline 1000ml 1,000 ML IV SCH (00:56)
[2020-12-20 00:59] LABS: BASOPHILS % (AUTO) 0.6 % (0-1); EOSINOPHILS # (AUTO) 0.1 X10'3 (0-0.9); EOSINOPHILS % (AUTO) 1.1 % (0-6); HEMATOCRIT 40.6 % (35.0-45.0); HEMOGLOBIN 13.3 g/dl (12.0-16.0); LYMPHOCYTES # (AUTO) 1.5 X10'3 (1.1-4.8); LYMPHOCYTES % (AUTO) 19.7 % (21-51); MEAN CORPUSCULAR HEMOGLOBIN 29.2 PG (27.0-31.0); MEAN CORPUSCULAR HGB CONC 32.7 g/dL (33.0-36.5); MEAN CORPUSCULAR VOLUME 89.4 FL (78-98); MEAN PLATELET VOLUME 8.2 FL (7.4-10.4); MONOCYTES # (AUTO) 0.3 X10'3 (0-0.9); MONOCYTES % (AUTO) 4.2 % (2-12); NEUTROPHILS # (AUTO) 5.8 X10'3 (1.8-7.7); NEUTROPHILS % (AUTO) 74.4 % (42-75); PLATELET COUNT 180 X10'3 (140-440); RED BLOOD COUNT 4.54 X10'6 (4.20-5.60); RED CELL DISTRIBUTION WIDTH 16.6 % (11.5-14.5); WHITE BLOOD COUNT 7.8 X10'3 (4.5-11.0)
[2020-12-20 01:12] LABS: ALBUMIN 2.9 G/DL (3.4-5.0); ANION GAP 9 (8-16); BLOOD UREA NITROGEN 11 MG/DL (7-18); BUN/CREATININE RATIO 11.2 (6.6-38.0); CALCIUM 8.7 MG/DL (8.5-10.1); CHLORIDE 106 MMOL/L (99-107); CREATININE 0.98 MG/DL (0.40-0.90); GLUCOSE 113 MG/DL (70-104); POTASSIUM 3.6 MMOL/L (3.5-5.1); SODIUM 143 MMOL/L (135-145); TOTAL CARBON DIOXIDE 27.6 MMOL/L (24-32); eGFR 60 ML/MIN
[2020-12-20 02:00] VITALS: BP 147/98
[2020-12-20] MEDS: heparin 25,000 UNIT/250ml bag 250 ML IV SCH ×2 (05:22→16:44)
--- NOTE | 2020-12-20 06:27 | NUR ---
Patient in room PCU 3015. I have received report from Ana SUTTON and had the opportunity to ask questions and assume patient care.
[2020-12-20 07:00] VITALS: BP 135/90
--- NOTE | 2020-12-20 08:00 | NUR ---
Patient in room PCU 3015. I have received report from nAa SUTTON and had the opportunity to ask questions and assume patient care.
--- NOTE | 2020-12-20 08:22 | NUR ---
PTT 115. paged Dr. Pham Paged "RE: CRISTY BURCIAGA: RM: 3015A: pt on heparin drip for PE. PTT 115 @0815. Heparin on hold x 2 hrs and will redraw per protocol. -Daniela #[phone]"
[2020-12-20] MEDS: methylPREDNISolone sod succ 125mg/2ml vial IV SCH ×2 (08:42→19:57)
[2020-12-20] MEDS: atorvastatin 20mg tablet PO SCH (08:42)
[2020-12-20] MEDS: levoTHYROXINE 25mcg tablet PO SCH (08:42)
[2020-12-20] MEDS: clonazePAM 1mg tablet PO SCH ×2 (08:43→19:57)
[2020-12-20] MEDS: lisinopril 20mg tablet PO SCH (08:43)
[2020-12-20] MEDS: HYDROcodone/acetaminophen 5mg/325mg tablet PO PRN ×3 (08:44→20:43)
[2020-12-20] MEDS ORDERED: FLU VACC QS2020-21(6MOS UP)/PF 60 MCG/0.5 ML SYRINGE IMVAC ONE (10:00)
[2020-12-20] MEDS ORDERED: pneumococcal 23-VAL P-sac vacc 25 mcg/0.5ml vial IMVAC ONE (10:00)
[2020-12-20 11:00] VITALS: BP 147/98
--- NOTE | 2020-12-20 11:09 | NUR ---
Current Skin assessment done by primary nurse scores patients Vincent score at a 20. no issues or concerns from primary nurse. Will have nursing contact WOC for wound care needs.
[2020-12-20 15:00] VITALS: BP 144/89
[2020-12-20 18:00] VITALS: BP 137/100
--- NOTE | 2020-12-20 18:08 | NUR ---
Problems reprioritized. Patient report given, questions answered & plan of care reviewed with Ana SUTTON. Pt content sitting up in bed eating dinner
--- NOTE | 2020-12-20 18:40 | NUR ---
PAGER ID: [phone] MESSAGE: Pt states she takes methadone and would like it continued. She has it at home. Can this be re-started tonight if her daughter brings it here. Ana 54Justyn Addendum: 12/20/20 at 1941 by Ana CARRANZA RN Per Dr. Pham, resume home methadone dosage and d/c current pain medications once resumed.
[2020-12-20 22:00] VITALS: BP 102/52
[2020-12-21] MEDS: morphine 2 MG/ML inj. syringe IV PRN (00:30)
[2020-12-21 01:19] LABS: BASOPHILS % (AUTO) 0.2 % (0-1); EOSINOPHILS % (AUTO) 0 % (0-6); HEMATOCRIT 42.2 % (35.0-45.0); HEMOGLOBIN 13.9 g/dl (12.0-16.0); LYMPHOCYTES # (AUTO) 1.2 X10'3 (1.1-4.8); LYMPHOCYTES % (AUTO) 10.8 % (21-51); MEAN CORPUSCULAR HEMOGLOBIN 29.6 PG (27.0-31.0); MEAN CORPUSCULAR HGB CONC 32.9 g/dL (33.0-36.5); MEAN CORPUSCULAR VOLUME 89.9 FL (78-98); MEAN PLATELET VOLUME 8.5 FL (7.4-10.4); MONOCYTES # (AUTO) 0.4 X10'3 (0-0.9); MONOCYTES % (AUTO) 3.7 % (2-12); NEUTROPHILS # (AUTO) 9.4 X10'3 (1.8-7.7); NEUTROPHILS % (AUTO) 85.3 % (42-75); PLATELET COUNT 204 X10'3 (140-440); RED CELL DISTRIBUTION WIDTH 16.3 % (11.5-14.5); WHITE BLOOD COUNT 11.1 X10'3 (4.5-11.0)
[2020-12-21 01:29] LABS: ALBUMIN 2.9 G/DL (3.4-5.0); ANION GAP 10 (8-16); BLOOD UREA NITROGEN 13 MG/DL (7-18); BUN/CREATININE RATIO 14.4 (6.6-38.0); CALCIUM 9.3 MG/DL (8.5-10.1); CHLORIDE 105 MMOL/L (99-107); GLUCOSE 139 MG/DL (70-104); POTASSIUM 3.7 MMOL/L (3.5-5.1); SODIUM 141 MMOL/L (135-145); TOTAL CARBON DIOXIDE 26.2 MMOL/L (24-32); eGFR 66 ML/MIN
[2020-12-21] MEDS: heparin 25,000 UNIT/250ml bag 250 ML IV SCH ×2 (01:33→18:59)
[2020-12-21 02:00] VITALS: BP 136/94
[2020-12-21 06:00] VITALS: BP 168/92
--- NOTE | 2020-12-21 06:00 | NUR ---
Patient in room PCU 3015. I have received report from gabriel solorio and had the opportunity to ask questions and assume patient care.
--- NOTE | 2020-12-21 06:20 | NUR ---
Patient in room PCU 3015. I have received report from Ana León and had the opportunity to ask questions and assume patient care.
[2020-12-21] MEDS: albuterol 2.5 MG/3 ML nebule NEB PRN ×2 (07:20→20:07)
--- NOTE | 2020-12-21 07:59 | NUR ---
Critical PTT MD Pham paged RE: [phone] Sergio Boone. Critical PTT 110, heparin held per protocol. will redraw per protocol. Carter Damian [phone]
[2020-12-21] MEDS: clonazePAM 1mg tablet PO SCH ×2 (08:58→19:26)
[2020-12-21] MEDS: atorvastatin 20mg tablet PO SCH (08:58)
[2020-12-21] MEDS: levoTHYROXINE 25mcg tablet PO SCH (08:58)
[2020-12-21] MEDS: lisinopril 20mg tablet PO SCH (08:59)
[2020-12-21] MEDS: methylPREDNISolone sod succ 125mg/2ml vial IV SCH (09:01)
[2020-12-21] MEDS: HYDROcodone/acetaminophen 10/325mg tab PO PRN ×3 (09:20→21:46)
[2020-12-21 11:00] VITALS: BP 131/85
[2020-12-21 15:00] VITALS: BP 139/85
[2020-12-21] MEDS: normal saline 1000ml 1,000 ML IV SCH (17:06)
[2020-12-21 18:00] VITALS: BP 137/86
--- NOTE | 2020-12-21 18:00 | NUR ---
Orientee documentation: I have reviewed and agree with all interventions, assessments performed and documented by Carter SUTTON. [place] Medication Administration: For this medication-pass time frame, all medication were reviewed, dispensed, administered and documented per hospital policy by Carter SUTTON.
--- NOTE | 2020-12-21 18:06 | NUR ---
Problems reprioritized. Patient report given, questions answered & plan of care reviewed with Ana SUTTON.
--- NOTE | 2020-12-21 18:06 | NUR ---
Problems reprioritized. Patient report given, questions answered & plan of care reviewed with Ana SUTTON.
[2020-12-21] MEDS: methylPREDNISolone sod succ/PF 40mg inj. IV SCH (19:25)
--- NOTE | 2020-12-21 20:05 | NUR ---
PAGER ID: [phone] MESSAGE: Room 3020 Peri bustamante is c/o pain 03/05. Pt takes Bovey 5 at home and this was verified with her pharmacy. Can you re-start and IV pain med would be appreciated too. Pt is cancer pt. VSS. Thanks Ana [phone] Addendum: 12/21/20 at 2005 by Ana CARRANZA RN wrong pt Addendum: 12/21/20 at 2011 by Ana CARRANZA RN Room 3015 Heppner states she needs her gabapentin. Medication and dosage was verified with her pharmacy. It's 600mg TID. Would you re-start? Thanks Ana [phone]
[2020-12-21] MEDS ORDERED: GABA600T13 PO (20:10)
[2020-12-21 23:53] VITALS: BP 130/79
[2020-12-22] MEDS: gabapentin 300mg capsule PO SCH ×2 (00:17→07:34)
[2020-12-22 02:15] LABS: ALANINE AMINOTRANSFERASE 79 U/L (12-78); ALBUMIN 2.8 G/DL (3.4-5.0); ALBUMIN/GLOBULIN RATIO 0.7 (1.1-1.5); ALKALINE PHOSPHATASE 127 IU/L (46-116); ANION GAP 9 (8-16); ASPARTATE AMINO TRANSFERASE 22 U/L (10-37); BILIRUBIN,TOTAL 0.2 MG/DL (0.1-1.0); BLOOD UREA NITROGEN 18 MG/DL (7-18); CALCIUM 8.6 MG/DL (8.5-10.1); CHLORIDE 104 MMOL/L (99-107); CREATININE 1.06 MG/DL (0.40-0.90); GLUCOSE 130 MG/DL (70-104); POTASSIUM 3.8 MMOL/L (3.5-5.1); SODIUM 141 MMOL/L (135-145); TOTAL CARBON DIOXIDE 28.2 MMOL/L (24-32); TOTAL PROTEIN 6.6 G/DL (6.4-8.2); eGFR 55 ML/MIN
[2020-12-22 02:23] LABS: BASOPHILS % (AUTO) 0.1 % (0-1); EOSINOPHILS % (AUTO) 0 % (0-6); HEMATOCRIT 39.4 % (35.0-45.0); HEMOGLOBIN 13.1 g/dl (12.0-16.0); LYMPHOCYTES # (AUTO) 0.8 X10'3 (1.1-4.8); LYMPHOCYTES % (AUTO) 7.6 % (21-51); MEAN CORPUSCULAR HEMOGLOBIN 29.8 PG (27.0-31.0); MEAN CORPUSCULAR HGB CONC 33.4 g/dL (33.0-36.5); MEAN CORPUSCULAR VOLUME 89.4 FL (78-98); MEAN PLATELET VOLUME 8.5 FL (7.4-10.4); MONOCYTES # (AUTO) 0.7 X10'3 (0-0.9); MONOCYTES % (AUTO) 6.3 % (2-12); NEUTROPHILS # (AUTO) 9.3 X10'3 (1.8-7.7); PLATELET COUNT 202 X10'3 (140-440); WHITE BLOOD COUNT 10.8 X10'3 (4.5-11.0)
[2020-12-22 03:33] VITALS: BP_SYST 123; BP_SYST 135; BP_DIAS 57; BP_DIAS 88
[2020-12-22] MEDS: HYDROcodone/acetaminophen 10/325mg tab PO PRN ×2 (03:55→10:15)
[2020-12-22] MEDS: normal saline 1000ml 1,000 ML IV SCH (03:56)
--- NOTE | 2020-12-22 06:20 | NUR ---
Patient in room PCU 3015. I have received report from HERMAN Perez and had the opportunity to ask questions and assume patient care.
[2020-12-22 07:00] VITALS: BP 137/83
[2020-12-22] MEDS: heparin 25,000 UNIT/250ml bag 250 ML IV SCH (07:05)
[2020-12-22] MEDS: clonazePAM 1mg tablet PO SCH (07:32)
[2020-12-22] MEDS: levoTHYROXINE 25mcg tablet PO SCH (07:32)
[2020-12-22] MEDS: methylPREDNISolone sod succ/PF 40mg inj. IV SCH (07:32)
[2020-12-22] MEDS: lisinopril 20mg tablet PO SCH (07:33)
[2020-12-22] MEDS: atorvastatin 20mg tablet PO SCH (07:34)
[2020-12-22 11:00] VITALS: BP 134/96
[2020-12-22] MEDS ORDERED: APIX5TAB3 PO (11:08)
[2020-12-22] MEDS ORDERED: PRED20TA PO (11:08)
[2020-12-22] MEDS ORDERED: apixaban 5mg tablet PO STA (11:09)
--- NOTE | 2020-12-22 12:55 | NUR ---
Patient stable for discharge per MD orders. PIV discontinued intact. Telemetry monitoring equipment removed and returned to telemetry office. All discharge instructions reviewed with patient who was given the opportunity to ask questions. All questions answered with patient expressing understanding of instructions. Patient assisted into wheelchair and wheeled to lobby to depart with mother in private vehicle.
== END 2020-12-22 13:00 | disposition home health service (06) | DRG 134 ==
LOC: ER 12:02 → ED HOLD 17:00 → PCU 3S 20:20
PROVIDERS: ADMIT Family Medicine; ATTEND Family Medicine
PROC: B32T1ZZ Computerized Tomography (CT Scan) of Left Pulmonary Artery using Low Osmolar Contrast (ICD-10-PCS; principal; 2020-12-19)
PROC: B32S1ZZ Computerized Tomography (CT Scan) of Right Pulmonary Artery using Low Osmolar Contrast (ICD-10-PCS; 2020-12-19)
PROC: 3E0234Z Introduction of Serum, Toxoid and Vaccine into Muscle, Percutaneous Approach (ICD-10-PCS; 2020-12-20)
DX: I26.99 Other pulmonary embolism without acute cor pulmonale (principal); J96.10 Chronic respiratory failure, unspecified whether with hypoxia or hypercapnia; E66.01 Morbid (severe) obesity due to excess calories; E11.9 Type 2 diabetes mellitus without complications; E78.00 Pure hypercholesterolemia, unspecified; E78.5 Hyperlipidemia, unspecified; G89.4 Chronic pain syndrome; R74.01 Elevation of levels of liver transaminase levels; Z20.822 Contact with and (suspected) exposure to COVID-19; I10 Essential (primary) hypertension; Z86.711 Personal history of pulmonary embolism; Z90.710 Acquired absence of both cervix and uterus; Z95.1 Presence of aortocoronary bypass graft; Z98.891 History of uterine scar from previous surgery; Z23 Encounter for immunization; Z68.41 Body mass index [BMI] 40.0-44.9, adult
CPT/HCPCS: 36415; 71045; 71275; 80048; 80053; 80305; 83880; 84443; 84484; 85025; 85379; 85730; 87081; 87635; 90732; 93005; 93306; 94640; 94760; 99285; G0378; J1644; J2270; J2920; J2930; J7030; Q9967

== ENCOUNTER 2022-07-01 11:44 | Inpatient (IN) | payer MEDICAID ==
[~2022-07-01] VITALS: Ht 162.6 cm; Wt 142.8 kg
[~2022-07-01 11:44] MED LIST changes: +APIX5TAB3 PO; +ATOR40TA7 PO; -GABA-534 PO; +GABA600T13 PO; -LANS15CA10 PO; +LEVO25TA7 PO
[2022-07-01 12:01] LABS: BASOPHILS # (AUTO) 0.1 X10'3 (0-0.2); BASOPHILS % (AUTO) 1.1 % (0-1); EOSINOPHILS # (AUTO) 0.2 X10'3 (0-0.9); EOSINOPHILS % (AUTO) 2.1 % (0-6); HEMATOCRIT 44.3 % (35.0-45.0); HEMOGLOBIN 14.6 g/dl (12.0-16.0); LYMPHOCYTES # (AUTO) 2.5 X10'3 (1.1-4.8); LYMPHOCYTES % (AUTO) 28.4 % (21-51); MEAN CORPUSCULAR HEMOGLOBIN 29.9 PG (27.0-31.0); MEAN CORPUSCULAR HGB CONC 32.9 g/dL (33.0-36.5); MONOCYTES # (AUTO) 0.7 X10'3 (0-0.9); MONOCYTES % (AUTO) 8.2 % (2-12); NEUTROPHILS # (AUTO) 5.3 X10'3 (1.8-7.7); NEUTROPHILS % (AUTO) 60.2 % (42-75); PLATELET COUNT 230 X10'3 (140-440); RED BLOOD COUNT 4.87 X10'6 (4.20-5.60); RED CELL DISTRIBUTION WIDTH 16.3 % (11.5-14.5); WHITE BLOOD COUNT 8.7 X10'3 (4.5-11.0)
[2022-07-01 12:13] LABS: ALANINE AMINOTRANSFERASE 62 U/L (12-78); ALBUMIN 3.2 G/DL (3.4-5.0); ALBUMIN/GLOBULIN RATIO 0.7 (1.1-1.5); ALKALINE PHOSPHATASE 149 IU/L (46-116); ANION GAP 12 (8-16); ASPARTATE AMINO TRANSFERASE 42 U/L (10-37); BILIRUBIN,TOTAL 0.3 MG/DL (0.1-1.0); BLOOD UREA NITROGEN 9 MG/DL (7-18); BUN/CREATININE RATIO 7.7 (6.6-38.0); CALCIUM 9.1 MG/DL (8.5-10.1); CHLORIDE 103 MMOL/L (99-107); CREATININE 1.17 MG/DL (0.40-0.90); GLUCOSE 150 MG/DL (70-104); POTASSIUM 3.8 MMOL/L (3.5-5.1); SODIUM 140 MMOL/L (135-145); TOTAL CARBON DIOXIDE 24.9 MMOL/L (24-32); TOTAL PROTEIN 7.5 G/DL (6.4-8.2); eGFR 49 ML/MIN
[2022-07-01 12:22] LABS: MAGNESIUM 2.1 MG/DL (1.5-2.4)
[2022-07-01] MEDS ORDERED: furosemide 10 MG/1 ML 10ml inj IV ONE (20:50)
[2022-07-02] VITALS (7 sets, daily range): BP systolic 108–134; BP diastolic 68–94
[2022-07-02] MEDS ORDERED: magnesium 4gm in 100ml NS 100 ML IV PRN (00:20)
[2022-07-02] MEDS ORDERED: ondansetron/PF 4mg/2ml inj IV PRN (00:20)
[2022-07-02] MEDS ORDERED: potassium Cl 40MEQ/1/2NS 520ml 520 ML IV PRN (00:20)
[2022-07-02] MEDS ORDERED: potassium Cl 20 mEq SR tablet PO PRN ×2 (00:20)
[2022-07-02] MEDS ORDERED: furosemide 10 MG/1 ML 10ml inj IV ONE (00:20)
[2022-07-02] MEDS ORDERED: magnesium Cl slow-release 64mg tablet PO PRN (00:20)
[2022-07-02] MEDS ORDERED: PERFLUTREN PROTEIN-A MICROSPHR (Optison) 0.22 MG/ML 3ML VIAL IV ONE (00:20)
[2022-07-02] MEDS ORDERED: acetaminophen 325mg tablet PO PRN (00:20)
[2022-07-02] MEDS ORDERED: iohexol 350MG/ML 100ml bottle IV ONE (00:30)
[2022-07-02] MEDS: ipratropium/albuterol 3ml nebule NEB SCH ×6 (03:41→23:00)
[2022-07-02] MEDS ORDERED: heparin 10,000 units/1 ML INJ IV ONE (05:10)
[2022-07-02] MEDS ORDERED: heparin 10,000 units/1 ML INJ IV PRN (05:10)
[2022-07-02 06:07] LABS: MAGNESIUM 2.4 MG/DL (1.5-2.4); POTASSIUM 3.4 MMOL/L (3.5-5.1)
[2022-07-02] MEDS: heparin 25,000 UNIT/250ml bag 250 ML IV PRN ×2 (06:15→20:38)
--- NOTE | 2022-07-02 06:54 | NUR ---
REPORT FROM HERMAN HILL FOR CONTINUATION OF CARE. PT IS AWAKE AO4. RESP EVEN UNLABORED. REPORTS SLIGHT SOB AND BACK PAIN UPPER AND LOWER. TYLENOL GIVEN WILL CONTACT MD FOR PRN PAIN MEDICARTION. SKIN W/D/I PINK. PT HEPRIN DRIP INFUSING AND NO SIGNS OF BLEEDING.
[2022-07-02] MEDS: HYDROcodone/acetaminophen 5mg/325mg tablet PO PRN ×2 (09:00→20:33)
--- NOTE | 2022-07-02 10:56 | NUR ---
report given to aaron solorio for continuation of care. pt to be transported to unit directly.
[2022-07-02] MEDS ORDERED: QUET400T54 PO (11:22)
[2022-07-02] MEDS ORDERED: FOLI1TAB27 PO (11:22)
[2022-07-02] MEDS ORDERED: LEVO50TA8 PO (11:22)
[2022-07-02] MEDS ORDERED: FLUO40CA PO (11:22)
[2022-07-02] MEDS ORDERED: CLON-372 PO (11:22)
[2022-07-02] MEDS: K and/or MAG REPLACEMENT MC SCH ×2 (11:30→19:02)
--- NOTE | 2022-07-02 11:32 | NUR ---
PAGER ID: [phone] MESSAGE: [id number] Phuc med rec done except for methadone 37mg daily. BRAULIO 1802
[2022-07-02] MEDS ORDERED: GABA600T13 PO (17:04)
[2022-07-02] MEDS ORDERED: APIX5TAB3 PO (17:04)
[2022-07-02] MEDS ORDERED: LISI40TA13 PO (17:04)
[2022-07-02] MEDS ORDERED: QUET-28 PO (17:04)
[2022-07-02] MEDS: atorvastatin 20mg tablet PO SCH (20:33)
[2022-07-02] MEDS: gabapentin 300mg capsule PO SCH (20:33)
[2022-07-02] MEDS: clonazePAM 1mg tablet PO SCH (20:57)
[2022-07-02] MEDS: quetiapine fumarate ER 300mg tablet PO SCH (20:58)
[2022-07-03] VITALS (10 sets, daily range): BP systolic 95–116; BP diastolic 55–88
[2022-07-03] MEDS: HYDROcodone/acetaminophen 5mg/325mg tablet PO PRN ×2 (01:46→08:22)
[2022-07-03] MEDS: ipratropium/albuterol 3ml nebule NEB SCH ×6 (03:00→22:49)
[2022-07-03 06:31] LABS: BASOPHILS % (AUTO) 0.9 % (0-1); EOSINOPHILS # (AUTO) 0.2 X10'3 (0-0.9); EOSINOPHILS % (AUTO) 3.5 % (0-6); HEMATOCRIT 41.8 % (35.0-45.0); HEMOGLOBIN 13.9 g/dl (12.0-16.0); LYMPHOCYTES # (AUTO) 1.9 X10'3 (1.1-4.8); LYMPHOCYTES % (AUTO) 36.1 % (21-51); MEAN CORPUSCULAR HEMOGLOBIN 30.4 PG (27.0-31.0); MEAN CORPUSCULAR HGB CONC 33.3 g/dL (33.0-36.5); MEAN CORPUSCULAR VOLUME 91.3 FL (78-98); MEAN PLATELET VOLUME 7.8 FL (7.4-10.4); MONOCYTES # (AUTO) 0.4 X10'3 (0-0.9); MONOCYTES % (AUTO) 8.1 % (2-12); NEUTROPHILS # (AUTO) 2.7 X10'3 (1.8-7.7); NEUTROPHILS % (AUTO) 51.4 % (42-75); PLATELET COUNT 206 X10'3 (140-440); RED BLOOD COUNT 4.58 X10'6 (4.20-5.60); RED CELL DISTRIBUTION WIDTH 15.9 % (11.5-14.5); WHITE BLOOD COUNT 5.3 X10'3 (4.5-11.0)
[2022-07-03 06:35] LABS: ALBUMIN 2.9 G/DL (3.4-5.0); ANION GAP 4 (8-16); BLOOD UREA NITROGEN 11 MG/DL (7-18); BUN/CREATININE RATIO 11.2 (6.6-38.0); CALCIUM 9.2 MG/DL (8.5-10.1); CHLORIDE 102 MMOL/L (99-107); CREATININE 0.98 MG/DL (0.40-0.90); GLUCOSE 113 MG/DL (70-104); MAGNESIUM 2.5 MG/DL (1.5-2.4); POTASSIUM 3.4 MMOL/L (3.5-5.1); SODIUM 139 MMOL/L (135-145); TOTAL CARBON DIOXIDE 32.6 MMOL/L (24-32); eGFR 60 ML/MIN
[2022-07-03] MEDS: K and/or MAG REPLACEMENT MC SCH ×2 (08:00→19:00)
[2022-07-03] MEDS: gabapentin 300mg capsule PO SCH ×3 (08:11→20:14)
[2022-07-03] MEDS: folic acid 1mg tablet PO SCH (08:11)
[2022-07-03] MEDS: clonazePAM 1mg tablet PO SCH ×2 (08:13→19:06)
[2022-07-03] MEDS: furosemide 40mg/4ml inj IV SCH ×2 (08:13→19:06)
[2022-07-03] MEDS: levoTHYROXINE 25mcg tablet PO SCH (08:21)
[2022-07-03] MEDS: FLUoxetine 20mg capsule PO SCH (08:22)
[2022-07-03] MEDS: lisinopril 20mg tablet PO SCH (08:22)
[2022-07-03] MEDS ORDERED: HYDROcodone/acetaminophen 10/325mg tab PO PRN (10:55)
--- NOTE | 2022-07-03 12:27 | NUR ---
O2 Sat at rest on room air:___% If below 89%: Recovery O2 Sat at rest on ___LPM:___%:___% via (mask/nasal cannula, etc..) No further documentation is necessary. If O2 Sat did not drop below 89% on room air,ambulate patient on room air. O2 Sat while ambulating on room air:_87__% Recovery O2 Sat while ambulating on _2__LPM:___% No further documentation is necessary. If patient does not drop below 89% while ambulating, he/she does not qualify for home O2.
[2022-07-03] MEDS: nystatin 15 GM powder TP SCH ×2 (13:20→20:14)
--- NOTE | 2022-07-03 14:49 | NUR ---
PAGER ID: [phone] MESSAGE: [id number] Phuc. Spoke to methadone clinic and confirmed pt status, dose and frequency. She gets 37mg daily. Thanks Tra ext. [phone] Denture Packer called methadone clinic [facility] and spoke to Magdalena Carter HOWELL who dispenses medication there. She confirmed pt does indeed go there and has been a pt for "some time". She says she has orders for "37mg daily". Pt is listed under name of Treasure Andrews. Pt was able to show me drivers license confirming name. LYNDA Machado she could be reached for further follow-up at .
[2022-07-03] MEDS ORDERED: methadone 10mg tablet PO SCH (16:01)
[2022-07-03] MEDS: methadone 10mg tablet PO SCH (17:01)
[2022-07-03] MEDS: enoxaparin 30mg/0.3ml syringe SUBCUT SCH (19:07)
[2022-07-03] MEDS: enoxaparin 80mg/0.8ml syringe SUBCUT SCH (19:07)
[2022-07-03] MEDS: quetiapine fumarate ER 300mg tablet PO SCH (20:14)
[2022-07-03] MEDS: atorvastatin 20mg tablet PO SCH (20:14)
[2022-07-04] VITALS (12 sets, daily range): BP systolic 91–122; BP diastolic 53–74
[2022-07-04] MEDS: ipratropium/albuterol 3ml nebule NEB SCH ×6 (02:25→23:05)
[2022-07-04] MEDS: FLUoxetine 20mg capsule PO SCH (07:54)
[2022-07-04] MEDS: folic acid 1mg tablet PO SCH (07:54)
[2022-07-04] MEDS: methadone 10mg tablet PO SCH (07:54)
[2022-07-04] MEDS: levoTHYROXINE 25mcg tablet PO SCH (07:54)
[2022-07-04] MEDS: clonazePAM 1mg tablet PO SCH ×2 (07:55→19:17)
[2022-07-04] MEDS: enoxaparin 80mg/0.8ml syringe SUBCUT SCH ×2 (07:55→19:16)
[2022-07-04] MEDS: lisinopril 20mg tablet PO SCH (07:55)
[2022-07-04] MEDS: gabapentin 300mg capsule PO SCH ×3 (07:55→20:58)
[2022-07-04] MEDS: furosemide 40mg/4ml inj IV SCH ×2 (07:55→19:17)
[2022-07-04] MEDS: nystatin 15 GM powder TP SCH ×3 (07:56→20:58)
[2022-07-04] MEDS: enoxaparin 30mg/0.3ml syringe SUBCUT SCH ×2 (07:56→19:16)
[2022-07-04] MEDS: K and/or MAG REPLACEMENT MC SCH ×2 (08:00→19:20)
[2022-07-04 08:03] LABS: BASOPHILS # (AUTO) 0.1 X10'3 (0-0.2); BASOPHILS % (AUTO) 1.4 % (0-1); EOSINOPHILS # (AUTO) 0.1 X10'3 (0-0.9); EOSINOPHILS % (AUTO) 2.7 % (0-6); HEMATOCRIT 41.2 % (35.0-45.0); HEMOGLOBIN 13.7 g/dl (12.0-16.0); LYMPHOCYTES # (AUTO) 1.5 X10'3 (1.1-4.8); LYMPHOCYTES % (AUTO) 28.2 % (21-51); MEAN CORPUSCULAR HEMOGLOBIN 30.3 PG (27.0-31.0); MEAN CORPUSCULAR HGB CONC 33.3 g/dL (33.0-36.5); MEAN PLATELET VOLUME 7.9 FL (7.4-10.4); MONOCYTES # (AUTO) 0.4 X10'3 (0-0.9); MONOCYTES % (AUTO) 7.1 % (2-12); NEUTROPHILS # (AUTO) 3.2 X10'3 (1.8-7.7); NEUTROPHILS % (AUTO) 60.6 % (42-75); PLATELET COUNT 208 X10'3 (140-440); RED BLOOD COUNT 4.53 X10'6 (4.20-5.60); RED CELL DISTRIBUTION WIDTH 16.5 % (11.5-14.5); WHITE BLOOD COUNT 5.3 X10'3 (4.5-11.0)
[2022-07-04 09:36] LABS: ANION GAP 6 (8-16); BLOOD UREA NITROGEN 16 MG/DL (7-18); BUN/CREATININE RATIO 14.3 (6.6-38.0); CHLORIDE 100 MMOL/L (99-107); CREATININE 1.12 MG/DL (0.40-0.90); GLUCOSE 105 MG/DL (70-104); MAGNESIUM 2.4 MG/DL (1.5-2.4); POTASSIUM 3.9 MMOL/L (3.5-5.1); SODIUM 138 MMOL/L (135-145); TOTAL CARBON DIOXIDE 31.6 MMOL/L (24-32); eGFR 51 ML/MIN
[2022-07-04] MEDS: quetiapine fumarate ER 300mg tablet PO SCH (20:38)
[2022-07-04] MEDS: atorvastatin 20mg tablet PO SCH (20:58)
[2022-07-05 02:11] VITALS: BP 112/69
[2022-07-05] MEDS: ipratropium/albuterol 3ml nebule NEB SCH ×3 (03:04→11:59)
[2022-07-05 06:00] VITALS: BP 111/67
--- NOTE | 2022-07-05 06:53 | NUR ---
Patient in room PCU 3024. I have received report from HERMAN Merchant and had the opportunity to ask questions and assume patient care.
[2022-07-05 07:59] LABS: BASOPHILS # (AUTO) 0.1 X10'3 (0-0.2); BASOPHILS % (AUTO) 0.8 % (0-1); EOSINOPHILS # (AUTO) 0.2 X10'3 (0-0.9); EOSINOPHILS % (AUTO) 2.7 % (0-6); HEMATOCRIT 44.5 % (35.0-45.0); HEMOGLOBIN 14.5 g/dl (12.0-16.0); LYMPHOCYTES # (AUTO) 1.8 X10'3 (1.1-4.8); LYMPHOCYTES % (AUTO) 29.1 % (21-51); MEAN CORPUSCULAR HGB CONC 32.6 g/dL (33.0-36.5); MEAN CORPUSCULAR VOLUME 92.2 FL (78-98); MEAN PLATELET VOLUME 7.8 FL (7.4-10.4); MONOCYTES # (AUTO) 0.5 X10'3 (0-0.9); MONOCYTES % (AUTO) 8.9 % (2-12); NEUTROPHILS # (AUTO) 3.6 X10'3 (1.8-7.7); NEUTROPHILS % (AUTO) 58.5 % (42-75); PLATELET COUNT 206 X10'3 (140-440); RED BLOOD COUNT 4.83 X10'6 (4.20-5.60); RED CELL DISTRIBUTION WIDTH 16.8 % (11.5-14.5); WHITE BLOOD COUNT 6.1 X10'3 (4.5-11.0)
[2022-07-05 08:00] VITALS: BP_SYST 105; BP_SYST 108; BP_SYST 98; BP_DIAS 55; BP_DIAS 63; BP_DIAS 80
[2022-07-05] MEDS: K and/or MAG REPLACEMENT MC SCH (08:00)
[2022-07-05] MEDS: levoTHYROXINE 25mcg tablet PO SCH (08:15)
[2022-07-05] MEDS: furosemide 40mg/4ml inj IV SCH (08:15)
[2022-07-05] MEDS: methadone 10mg tablet PO SCH (08:16)
[2022-07-05] MEDS: clonazePAM 1mg tablet PO SCH (08:17)
[2022-07-05] MEDS: gabapentin 300mg capsule PO SCH ×2 (08:17→14:36)
[2022-07-05] MEDS: lisinopril 20mg tablet PO SCH (08:17)
[2022-07-05] MEDS: folic acid 1mg tablet PO SCH (08:17)
[2022-07-05] MEDS: FLUoxetine 20mg capsule PO SCH (08:18)
[2022-07-05] MEDS: enoxaparin 80mg/0.8ml syringe SUBCUT SCH (08:18)
[2022-07-05] MEDS: nystatin 15 GM powder TP SCH ×2 (08:19→14:36)
[2022-07-05] MEDS: enoxaparin 30mg/0.3ml syringe SUBCUT SCH (08:19)
[2022-07-05 10:37] LABS: ALBUMIN 3.2 G/DL (3.4-5.0); ANION GAP 5 (8-16); BLOOD UREA NITROGEN 20 MG/DL (7-18); BUN/CREATININE RATIO 17.7 (6.6-38.0); CALCIUM 9.3 MG/DL (8.5-10.1); CHLORIDE 98 MMOL/L (99-107); CREATININE 1.13 MG/DL (0.40-0.90); GLUCOSE 94 MG/DL (70-104); MAGNESIUM 2.4 MG/DL (1.5-2.4); POTASSIUM 3.8 MMOL/L (3.5-5.1); SODIUM 139 MMOL/L (135-145); TOTAL CARBON DIOXIDE 36.3 MMOL/L (24-32); eGFR 51 ML/MIN
[2022-07-05 11:00] VITALS: BP 98/60
--- NOTE | 2022-07-05 11:30 | NUR ---
O2 Sat at rest on room air:__90_% If below 89%: Recovery O2 Sat at rest on __3_LPM:_94__%:___% via NC (mask/nasal cannula, etc..) No further documentation is necessary. If O2 Sat did not drop below 89% on room air,ambulate patient on room air. O2 Sat while ambulating on room air:_83__% Recovery O2 Sat while ambulating on _3__LPM:_93__% No further documentation is necessary. If patient does not drop below 89% while ambulating, he/she does not qualify for home O2.
[2022-07-05] MEDS ORDERED: ENOX40SY7 SQ (12:53)
[2022-07-05] MEDS ORDERED: magnesium hydroxide 30ml (MOM) UD suspension PO ONE (13:15)
--- NOTE | 2022-07-05 15:06 | NUR ---
Patient was discharged at 1455 with instructions and verbalizing understanding of instructions, in wheelchair accompanied by nursing staff and family, going home via private vehicle. All lines and tubes including PIV with intact cannula and tele monitor have been removed. Patient will make her own follow up appointment with her PCP and dr. Lee. Patient is stable and appropriate for discharge.
== END 2022-07-05 14:57 | disposition home health service (06) | DRG 133 ==
LOC: ER 11:44 → ED HOLD 07-02 00:21 → PCU 3S 07-02 11:21
PROVIDERS: ADMIT Internal Medicine; ATTEND Internal Medicine
PROC: B32T1ZZ Computerized Tomography (CT Scan) of Left Pulmonary Artery using Low Osmolar Contrast (ICD-10-PCS; principal; 2022-07-02)
PROC: B3201ZZ Computerized Tomography (CT Scan) of Thoracic Aorta using Low Osmolar Contrast (ICD-10-PCS; 2022-07-02)
PROC: B32S1ZZ Computerized Tomography (CT Scan) of Right Pulmonary Artery using Low Osmolar Contrast (ICD-10-PCS; 2022-07-02)
DX: J96.21 Acute and chronic respiratory failure with hypoxia (principal); I26.09 Other pulmonary embolism with acute cor pulmonale; N17.0 Acute kidney failure with tubular necrosis; I50.9 Heart failure, unspecified; I11.0 Hypertensive heart disease with heart failure; Z68.43 Body mass index [BMI] 50.0-59.9, adult; E03.9 Hypothyroidism, unspecified; F32.A Depression, unspecified; G89.4 Chronic pain syndrome; E78.00 Pure hypercholesterolemia, unspecified; I21.A1 Myocardial infarction type 2; F41.9 Anxiety disorder, unspecified; E66.01 Morbid (severe) obesity due to excess calories; F11.90 Opioid use, unspecified, uncomplicated; M54.9 Dorsalgia, unspecified; Z83.3 Family history of diabetes mellitus; Z86.711 Personal history of pulmonary embolism; Z90.710 Acquired absence of both cervix and uterus; Z98.891 History of uterine scar from previous surgery; Z79.01 Long term (current) use of anticoagulants; Z95.1 Presence of aortocoronary bypass graft; Z56.0 Unemployment, unspecified; Z88.5 Allergy status to narcotic agent; Z86.718 Personal history of other venous thrombosis and embolism
CPT/HCPCS: 36415; 71045; 71275; 80048; 80053; 83735; 83880; 84132; 84484; 85025; 85730; 93005; 93306; 94640; 94760; 96374; 97161; 97530; 99285; G0378; J1644; J1650; J1940; J3490; Q9967

== ENCOUNTER 2022-10-07 11:09 | Inpatient (IN) | payer MEDICAID ==
[~2022-10-07] VITALS: Ht 157.5 cm; Wt 131.7 kg
[~2022-10-07 11:09] MED LIST changes: -APIX5TAB3 PO; +CLON-372 PO; -CLON-527 PO; +ENOX40SY7 SQ; +FLUO40CA PO; +FOLI1TAB27 PO; -LEVO25TA7 PO; +LEVO50TA8 PO; -LISI20TA28 PO; +LISI40TA13 PO; +QUET-28 PO
[2022-10-07] MEDS ORDERED: normal saline 1000ML IV soln IVB ONE (11:15)
[2022-10-07] MEDS ORDERED: methylPREDNISolone sod succ 125mg/2ml vial IV ONE (11:15)
[2022-10-07] MEDS ORDERED: ipratropium/albuterol 3ml nebule NEB ONE (11:15)
[2022-10-07 11:30] LABS: BASOPHILS % (AUTO) 0.6 % (0-1); EOSINOPHILS # (AUTO) 0.2 X10'3 (0-0.9); HEMATOCRIT 34.9 % (35.0-45.0); HEMOGLOBIN 11.5 g/dl (12.0-16.0); LYMPHOCYTES # (AUTO) 1.3 X10'3 (1.1-4.8); LYMPHOCYTES % (AUTO) 16.6 % (21-51); MEAN CORPUSCULAR HGB CONC 32.9 g/dL (33.0-36.5); MEAN CORPUSCULAR VOLUME 94.2 FL (78-98); MEAN PLATELET VOLUME 7.2 FL (7.4-10.4); MONOCYTES # (AUTO) 0.6 X10'3 (0-0.9); NEUTROPHILS % (AUTO) 73.8 % (42-75); PLATELET COUNT 208 X10'3 (140-440); RED CELL DISTRIBUTION WIDTH 14.5 % (11.5-14.5); WHITE BLOOD COUNT 8.1 X10'3 (4.5-11.0)
[2022-10-07 11:47] LABS: ALANINE AMINOTRANSFERASE 42 U/L (12-78); ALBUMIN 2.8 G/DL (3.4-5.0); ALBUMIN/GLOBULIN RATIO 0.7 (1.1-1.5); ALKALINE PHOSPHATASE 169 IU/L (46-116); ANION GAP 1 (8-16); ASPARTATE AMINO TRANSFERASE 36 U/L (10-37); BILIRUBIN,TOTAL 0.4 MG/DL (0.1-1.0); BLOOD UREA NITROGEN 10 MG/DL (7-18); BUN/CREATININE RATIO 9.8 (6.6-38.0); CALCIUM 9.1 MG/DL (8.5-10.1); CHLORIDE 107 MMOL/L (99-107); CREATININE 1.02 MG/DL (0.40-0.90); GLUCOSE 125 MG/DL (70-104); POTASSIUM 3.3 MMOL/L (3.5-5.1); SODIUM 144 MMOL/L (135-145); TOTAL CARBON DIOXIDE 35.8 MMOL/L (24-32); eGFR 57 ML/MIN
[2022-10-07] MEDS ORDERED: furosemide 10 MG/1 ML 10ml inj IV ONE (12:05)
[2022-10-07] MEDS ORDERED: aspirin 325mg tablet PO ONE (12:05)
[2022-10-07] MEDS ORDERED: iohexol 350MG/ML 100ml bottle IV ONE (12:10)
[2022-10-07] MEDS ORDERED: nitroGLYCERIN 0.4mg SUBLingual tab SL PRN (12:10)
[2022-10-07 12:38] LABS: CLARITY,URINE CLEAR (Clear); COLOR,URINE YELLOW (Yellow); GLUCOSE, URINE NEGATIVE (Neg); KETONES,URINE NEGATIVE (Neg); LEUKOCYTE ESTERASE ,URINE TRACE (Neg); NITRITES, URINE NEGATIVE (Neg); OCCULT BLOOD,URINE SMALL (Neg); PROTEIN,URINE NEGATIVE (Neg)
[2022-10-07 12:42] LABS: UA COLLECTION TYPE CLN CATCH MIDSTREAM
[2022-10-07 12:52] LABS: URINE AMPHETAMINE SCREEN NEGATIVE (Neg); URINE BARBITUATE SCREEN NEGATIVE (Neg); URINE BENZODIAZEPINES SCREEN NEGATIVE (Neg); URINE CANNABINOID SCREEN NEGATIVE (Neg); URINE COCAINE SCREEN NEGATIVE (Neg); URINE METHADONE SCREEN POSITIVE (Neg); URINE OPIATE SCREEN NEGATIVE (Neg); URINE PHENCYCLIDINE SCREEN NEGATIVE (Neg)
[2022-10-07 12:55] LABS: BACTERIA,URINE FEW /HPF (Neg); SQUAMOUS EPITHELIAL CELL,UR FEW /LPF (FEW)
[2022-10-07] MEDS ORDERED: CefTRIAXone 2gm/D5W 50ml BAG 50 ML IV ONE (13:45)
[2022-10-07] MEDS ORDERED: azithromycin/NS 500mg/250ml 250 ML IV ONE (13:45)
[2022-10-07] MEDS ORDERED: APIX5TAB3 PO (14:34)
[2022-10-07] MEDS ORDERED: METH-806 PO (14:35)
[2022-10-07] MEDS ORDERED: potassium Cl 40MEQ/1/2NS 520ml 520 ML IV PRN (15:15)
[2022-10-07] MEDS ORDERED: ondansetron 4mg rapidly disintigrating tab PO PRN (15:15)
[2022-10-07] MEDS ORDERED: potassium Cl 20 mEq SR tablet PO PRN (15:15)
[2022-10-07] MEDS ORDERED: HYDROcodone/acetaminophen 5mg/325mg tablet PO PRN (15:15)
[2022-10-07] MEDS ORDERED: HYDROmorphone/PF 0.2 MG/ML SYRINGE IV PRN (15:15)
[2022-10-07] MEDS ORDERED: magnesium Cl slow-release 64mg tablet PO PRN (15:15)
[2022-10-07] MEDS ORDERED: bisacodyl 10mg suppository rectal RC PRN (15:15)
[2022-10-07] MEDS ORDERED: HYDROmorphone inj. 0.5 MG/0.5 ML DISP.SYRIN IV PRN (15:15)
[2022-10-07] MEDS ORDERED: acetaminophen 325mg tablet PO PRN ×2 (15:15)
[2022-10-07] MEDS ORDERED: magnesium 4gm in 100ml NS 100 ML IV PRN (15:15)
[2022-10-07] MEDS ORDERED: acetaminophen 650mg rectal suppository RC PRN (15:15)
[2022-10-07] MEDS ORDERED: mag hydrox/Alum hydrox/simeth 30ml oral suspension PO PRN (15:15)
[2022-10-07] MEDS ORDERED: ondansetron/PF 4mg/2ml inj IV PRN (15:15)
[2022-10-07 15:36] LABS: ABG BASE EXCESS 4.6 mmol/L (-2.0-2.0); ABG HCO3 30.7 mmol/L (22.0-26.0); ABG OXYGEN SATURATION 90.8 % (94-97); ABG PCO2 (T) 51.5 mmHg (32.0-45.0); ABG PO2 (T) 60.4 mmHg (75.0-100.0); ALLEN'S TEST POSITIVE; FCOHb 0.6 % (0.0-3.9); FLOW 3 L/min; FMetHb 0.2 % (0.0-1.5); FO2Hb 90.1 % (94-97); PATIENT TEMPERATURE 36.9; TOTAL HEMOGLOBIN 13.9 G/dl (12.0-16.0)
[2022-10-07] MEDS: K and/or MAG REPLACEMENT MC SCH (20:00)
[2022-10-07] MEDS: furosemide 40mg/4ml inj IV SCH (20:58)
[2022-10-07] MEDS: gabapentin 300mg capsule PO SCH (20:59)
[2022-10-07] MEDS: docusate sod 100mg capsule PO SCH (20:59)
[2022-10-07] MEDS: quetiapine fumarate ER 300mg tablet PO SCH (20:59)
[2022-10-07] MEDS: apixaban 5mg tablet PO SCH (21:00)
[2022-10-07] MEDS: clonazePAM 1mg tablet PO SCH (21:00)
[2022-10-07] MEDS: HYDROcodone/acetaminophen 10/325mg tab PO PRN (21:00)
[2022-10-07] MEDS: potassium Cl 20 mEq SR tablet PO PRN (21:00)
[2022-10-07 22:00] VITALS: BP 115/63
[2022-10-08] MEDS: ipratropium/albuterol 3ml nebule NEB PRN ×2 (00:30→09:31)
[2022-10-08 02:00] VITALS: BP 116/66
[2022-10-08] MEDS: HYDROcodone/acetaminophen 10/325mg tab PO PRN ×3 (02:29→22:56)
[2022-10-08 06:37] LABS: BASOPHILS % (AUTO) 0.3 % (0-1); EOSINOPHILS % (AUTO) 0 % (0-6); HEMOGLOBIN 12.4 g/dl (12.0-16.0); LYMPHOCYTES # (AUTO) 0.9 X10'3 (1.1-4.8); LYMPHOCYTES % (AUTO) 8.8 % (21-51); MEAN CORPUSCULAR HEMOGLOBIN 30.7 PG (27.0-31.0); MEAN CORPUSCULAR HGB CONC 32.7 g/dL (33.0-36.5); MEAN CORPUSCULAR VOLUME 93.7 FL (78-98); MEAN PLATELET VOLUME 7.6 FL (7.4-10.4); MONOCYTES # (AUTO) 0.5 X10'3 (0-0.9); MONOCYTES % (AUTO) 5.2 % (2-12); NEUTROPHILS % (AUTO) 85.7 % (42-75); PLATELET COUNT 295 X10'3 (140-440); RED BLOOD COUNT 4.05 X10'6 (4.20-5.60); RED CELL DISTRIBUTION WIDTH 14.3 % (11.5-14.5); WHITE BLOOD COUNT 10.5 X10'3 (4.5-11.0)
[2022-10-08 07:01] LABS: ALANINE AMINOTRANSFERASE 47 U/L (12-78); ALBUMIN 3.2 G/DL (3.4-5.0); ALBUMIN/GLOBULIN RATIO 0.7 (1.1-1.5); ALKALINE PHOSPHATASE 190 IU/L (46-116); ANION GAP 8 (8-16); ASPARTATE AMINO TRANSFERASE 29 U/L (10-37); BILIRUBIN,TOTAL 0.3 MG/DL (0.1-1.0); BLOOD UREA NITROGEN 15 MG/DL (7-18); BUN/CREATININE RATIO 14.3 (6.6-38.0); CALCIUM 9.1 MG/DL (8.5-10.1); CHLORIDE 100 MMOL/L (99-107); CREATININE 1.05 MG/DL (0.40-0.90); GLUCOSE 145 MG/DL (70-104); MAGNESIUM 2.3 MG/DL (1.5-2.4); PHOSPHORUS 3.2 MG/DL (2.3-4.5); POTASSIUM 3.5 MMOL/L (3.5-5.1); SODIUM 142 MMOL/L (135-145); TOTAL CARBON DIOXIDE 33.9 MMOL/L (24-32); TOTAL PROTEIN 8.1 G/DL (6.4-8.2); eGFR 55 ML/MIN
[2022-10-08 07:20] VITALS: BP 115/73
[2022-10-08] MEDS: K and/or MAG REPLACEMENT MC SCH ×2 (08:00→20:00)
[2022-10-08] MEDS: furosemide 40mg/4ml inj IV SCH ×2 (08:42→21:09)
[2022-10-08 08:44] LABS: PLATELET ESTIMATE NORMAL; TOTAL CELLS COUNTED 100
[2022-10-08] MEDS: apixaban 5mg tablet PO SCH ×2 (08:47→21:13)
[2022-10-08] MEDS: CefTRIAXone/D5W-Rocephin 1gm 50 ML IV SCH (08:47)
[2022-10-08] MEDS: docusate sod 100mg capsule PO SCH ×2 (08:47→21:13)
[2022-10-08] MEDS: atorvastatin 20mg tablet PO SCH (08:48)
[2022-10-08] MEDS: clonazePAM 1mg tablet PO SCH ×2 (08:48→21:14)
[2022-10-08] MEDS: FLUoxetine 20mg capsule PO SCH (08:49)
[2022-10-08] MEDS: gabapentin 300mg capsule PO SCH ×3 (08:49→21:14)
[2022-10-08] MEDS: levoTHYROXINE 25mcg tablet PO SCH (08:49)
[2022-10-08] MEDS: lisinopril 20mg tablet PO SCH (08:50)
[2022-10-08] MEDS ORDERED: METH10SO PO (09:49)
[2022-10-08] MEDS ORDERED: predniSONE 20 mg tablet PO SCH (10:55)
[2022-10-08] MEDS ORDERED: ipratropium/albuterol 3ml nebule NEB PRN (10:55)
[2022-10-08] MEDS ORDERED: docusate sod 100mg capsule PO SCH (11:00)
[2022-10-08] MEDS: azithromycin/NS 500mg/250ml 250 ML IV SCH (11:27)
[2022-10-08] MEDS: methadone 10mg tablet PO SCH (11:27)
--- NOTE | 2022-10-08 11:44 | NUR ---
Student documentation: I have reviewed and agree with all interventions, assessments performed and documented by Tere student nurse.
[2022-10-08 12:04] VITALS: BP 102/60
--- NOTE | 2022-10-08 12:42 | NUR ---
Page sent to : [id number] Vibha Friend: patients daughter cy requesting call regarding dc planning whenever you get a chance. [phone]. thank you!
[2022-10-08] MEDS ORDERED: methylPREDNISolone sod succ 125mg/2ml vial IV ONE (14:20)
[2022-10-08] MEDS: ipratropium/albuterol 3ml nebule NEB SCH ×3 (15:12→23:29)
[2022-10-08] MEDS ORDERED: pneumococcal 23-VAL P-sac vacc 25 mcg/0.5ml vial IMVAC ONE (16:35)
[2022-10-08] MEDS ORDERED: FLU VACC QS2022-23(6MOS UP)/PF 60 MCG/0.5 ML SYRINGE IMVAC ONE (16:40)
[2022-10-08 18:00] VITALS: BP 96/63
--- NOTE | 2022-10-08 18:38 | NUR ---
Problems reprioritized. Patient report given, questions answered & plan of care reviewed with HERMAN Peguero.
[2022-10-08] MEDS: methylPREDNISolone sod succ 125mg/2ml vial IV SCH (21:12)
[2022-10-08] MEDS: quetiapine fumarate ER 300mg tablet PO SCH (21:15)
[2022-10-08] MEDS: temazepam 15mg capsule PO PRN (22:56)
--- NOTE | 2022-10-09 00:30 | NUR ---
Had to leave unit to go to ED. Reported off to and relinquished care to HERMAN Redmond. Pt resting comfortably w/ no s/s of discomfort noted.
[2022-10-09 02:00] VITALS: BP 122/86
[2022-10-09] MEDS: methylPREDNISolone sod succ 125mg/2ml vial IV SCH ×4 (02:15→20:00)
[2022-10-09] MEDS: ipratropium/albuterol 3ml nebule NEB SCH ×6 (02:40→23:32)
--- NOTE | 2022-10-09 04:37 | NUR ---
Took back pt care from Nyla SUTTON. Pt resting quietly in bed w/ no s/s of discomfort noted.
[2022-10-09 06:00] VITALS: BP 111/70
[2022-10-09 07:07] LABS: BASOPHILS % (AUTO) 0.3 % (0-1); EOSINOPHILS % (AUTO) 0 % (0-6); HEMATOCRIT 37.6 % (35.0-45.0); HEMOGLOBIN 12.2 g/dl (12.0-16.0); LYMPHOCYTES # (AUTO) 0.6 X10'3 (1.1-4.8); LYMPHOCYTES % (AUTO) 5.2 % (21-51); MEAN CORPUSCULAR HEMOGLOBIN 30.3 PG (27.0-31.0); MEAN CORPUSCULAR HGB CONC 32.5 g/dL (33.0-36.5); MEAN CORPUSCULAR VOLUME 93.3 FL (78-98); MEAN PLATELET VOLUME 7.1 FL (7.4-10.4); MONOCYTES # (AUTO) 0.3 X10'3 (0-0.9); MONOCYTES % (AUTO) 2.7 % (2-12); NEUTROPHILS # (AUTO) 10.4 X10'3 (1.8-7.7); NEUTROPHILS % (AUTO) 91.8 % (42-75); PLATELET COUNT 305 X10'3 (140-440); RED BLOOD COUNT 4.03 X10'6 (4.20-5.60); RED CELL DISTRIBUTION WIDTH 14.6 % (11.5-14.5); WHITE BLOOD COUNT 11.3 X10'3 (4.5-11.0)
[2022-10-09 07:20] LABS: ALANINE AMINOTRANSFERASE 37 U/L (12-78); ALBUMIN 3.2 G/DL (3.4-5.0); ALBUMIN/GLOBULIN RATIO 0.7 (1.1-1.5); ALKALINE PHOSPHATASE 147 IU/L (46-116); ANION GAP 5 (8-16); ASPARTATE AMINO TRANSFERASE 16 U/L (10-37); BILIRUBIN,TOTAL 0.2 MG/DL (0.1-1.0); BLOOD UREA NITROGEN 23 MG/DL (7-18); BUN/CREATININE RATIO 20.4 (6.6-38.0); CALCIUM 9.1 MG/DL (8.5-10.1); CHLORIDE 101 MMOL/L (99-107); CREATININE 1.13 MG/DL (0.40-0.90); GLUCOSE 169 MG/DL (70-104); MAGNESIUM 2.6 MG/DL (1.5-2.4); PHOSPHORUS 3.3 MG/DL (2.3-4.5); POTASSIUM 3.2 MMOL/L (3.5-5.1); SODIUM 141 MMOL/L (135-145); TOTAL CARBON DIOXIDE 35.2 MMOL/L (24-32); TOTAL PROTEIN 7.8 G/DL (6.4-8.2); eGFR 51 ML/MIN
[2022-10-09] MEDS ORDERED: pneumococcal 23-VAL P-sac vacc 25 mcg/0.5ml vial IMVAC ONE (08:00)
[2022-10-09] MEDS: K and/or MAG REPLACEMENT MC SCH ×2 (08:00→20:00)
[2022-10-09] MEDS ORDERED: FLU VACC QS2022-23(6MOS UP)/PF 60 MCG/0.5 ML SYRINGE IMVAC ONE (08:00)
[2022-10-09] MEDS: CefTRIAXone/D5W-Rocephin 1gm 50 ML IV SCH (08:13)
[2022-10-09] MEDS: furosemide 40mg/4ml inj IV SCH (08:13)
[2022-10-09] MEDS: atorvastatin 20mg tablet PO SCH (08:14)
[2022-10-09] MEDS: apixaban 5mg tablet PO SCH ×2 (08:14→23:20)
[2022-10-09] MEDS: clonazePAM 1mg tablet PO SCH ×2 (08:14→23:20)
[2022-10-09] MEDS: lisinopril 20mg tablet PO SCH (08:14)
[2022-10-09] MEDS: gabapentin 300mg capsule PO SCH ×4 (08:14→23:19)
[2022-10-09] MEDS: levoTHYROXINE 25mcg tablet PO SCH (08:14)
[2022-10-09] MEDS: docusate sod 100mg capsule PO SCH ×2 (08:15→23:20)
[2022-10-09] MEDS: methadone 10mg tablet PO SCH (08:23)
[2022-10-09] MEDS: FLUoxetine 20mg capsule PO SCH (08:23)
[2022-10-09] MEDS: potassium Cl 20 mEq SR tablet PO PRN ×3 (08:41→17:46)
[2022-10-09] MEDS: magnesium hydroxide 30ml (MOM) UD suspension PO PRN ×2 (08:41→23:18)
[2022-10-09] MEDS: azithromycin/NS 500mg/250ml 250 ML IV SCH (09:13)
[2022-10-09 11:36] VITALS: BP 100/54
[2022-10-09 14:37] VITALS: BP 112/64
[2022-10-09] MEDS: HYDROcodone/acetaminophen 10/325mg tab PO PRN (17:45)
[2022-10-09 18:00] VITALS: BP 110/60
[2022-10-09] MEDS ORDERED: lactulose 20gm/30ml cup PO ONE (21:00)
[2022-10-09 22:00] VITALS: BP 131/84
[2022-10-09] MEDS: quetiapine fumarate ER 300mg tablet PO SCH (23:19)
[2022-10-09] MEDS: temazepam 15mg capsule PO PRN (23:20)
[2022-10-09] MEDS: bumetanide 0.25mg/ml 4ml vial IV SCH (23:21)
[2022-10-10 02:00] VITALS: BP 110/64
[2022-10-10] MEDS: methylPREDNISolone sod succ 125mg/2ml vial IV SCH ×3 (02:09→13:37)
[2022-10-10] MEDS: ipratropium/albuterol 3ml nebule NEB SCH ×6 (03:30→23:22)
[2022-10-10] MEDS: HYDROcodone/acetaminophen 10/325mg tab PO PRN ×3 (05:06→17:42)
[2022-10-10 06:00] VITALS: BP 119/70
[2022-10-10 06:30] LABS: BASOPHILS % (AUTO) 0.2 % (0-1); EOSINOPHILS % (AUTO) 0 % (0-6); HEMATOCRIT 37.4 % (35.0-45.0); HEMOGLOBIN 12.4 g/dl (12.0-16.0); LYMPHOCYTES # (AUTO) 0.7 X10'3 (1.1-4.8); LYMPHOCYTES % (AUTO) 5.4 % (21-51); MEAN CORPUSCULAR HEMOGLOBIN 31.2 PG (27.0-31.0); MEAN CORPUSCULAR HGB CONC 33.2 g/dL (33.0-36.5); MEAN CORPUSCULAR VOLUME 93.8 FL (78-98); MONOCYTES # (AUTO) 0.5 X10'3 (0-0.9); MONOCYTES % (AUTO) 3.5 % (2-12); NEUTROPHILS # (AUTO) 12.5 X10'3 (1.8-7.7); NEUTROPHILS % (AUTO) 90.9 % (42-75); PLATELET COUNT 308 X10'3 (140-440); RED BLOOD COUNT 3.99 X10'6 (4.20-5.60); RED CELL DISTRIBUTION WIDTH 14.7 % (11.5-14.5); WHITE BLOOD COUNT 13.8 X10'3 (4.5-11.0)
[2022-10-10 06:57] LABS: TOTAL CELLS COUNTED 100
[2022-10-10 06:58] LABS: PLATELET ESTIMATE NORMAL; TOXIC GRANULATION 1+; TOXIC VACUOLATION FEW
--- NOTE | 2022-10-10 07:01 | NUR ---
Patient in room PCU 3018. I have received report from Sudhir and had the opportunity to ask questions and assume patient care.
[2022-10-10 07:02] LABS: ALANINE AMINOTRANSFERASE 31 U/L (12-78); ALBUMIN 3.2 G/DL (3.4-5.0); ALBUMIN/GLOBULIN RATIO 0.7 (1.1-1.5); ALKALINE PHOSPHATASE 140 IU/L (46-116); ANION GAP 6 (8-16); ASPARTATE AMINO TRANSFERASE 18 U/L (10-37); BILIRUBIN,TOTAL 0.2 MG/DL (0.1-1.0); BLOOD UREA NITROGEN 24 MG/DL (7-18); BUN/CREATININE RATIO 21.1 (6.6-38.0); CALCIUM 8.8 MG/DL (8.5-10.1); CHLORIDE 99 MMOL/L (99-107); CREATININE 1.14 MG/DL (0.40-0.90); GLUCOSE 154 MG/DL (70-104); MAGNESIUM 2.9 MG/DL (1.5-2.4); PHOSPHORUS 3.2 MG/DL (2.3-4.5); SODIUM 140 MMOL/L (135-145); TOTAL CARBON DIOXIDE 35.4 MMOL/L (24-32); TOTAL PROTEIN 7.5 G/DL (6.4-8.2); eGFR 50 ML/MIN
[2022-10-10] MEDS: K and/or MAG REPLACEMENT MC SCH ×2 (08:00→20:00)
[2022-10-10] MEDS: CefTRIAXone/D5W-Rocephin 1gm 50 ML IV SCH (08:49)
[2022-10-10] MEDS: docusate sod 100mg capsule PO SCH ×2 (08:50→21:08)
[2022-10-10] MEDS: apixaban 5mg tablet PO SCH ×2 (08:50→21:07)
[2022-10-10] MEDS: levoTHYROXINE 25mcg tablet PO SCH (08:50)
[2022-10-10] MEDS: atorvastatin 20mg tablet PO SCH (08:51)
[2022-10-10] MEDS: FLUoxetine 20mg capsule PO SCH (08:51)
[2022-10-10] MEDS: bumetanide 0.25mg/ml 4ml vial IV SCH (08:52)
[2022-10-10] MEDS: gabapentin 300mg capsule PO SCH ×3 (08:52→21:07)
[2022-10-10] MEDS: clonazePAM 1mg tablet PO SCH ×2 (08:53→21:08)
[2022-10-10] MEDS: methadone 10mg tablet PO SCH (08:53)
[2022-10-10] MEDS: azithromycin/NS 500mg/250ml 250 ML IV SCH (09:46)
[2022-10-10 14:00] VITALS: BP 126/83
--- NOTE | 2022-10-10 17:01 | NUR ---
PAGER ID: [phone] MESSAGE: Treasureleti Jaimesver in [phone] - Forgot to ask for something for BM. Pt has had MOMx2, lactulose and prune juice. Maybe more lactulose? -[phone]
[2022-10-10] MEDS ORDERED: predniSONE 20 mg tablet PO ONE (17:07)
[2022-10-10 18:00] VITALS: BP 114/70
[2022-10-10] MEDS: quetiapine fumarate ER 300mg tablet PO SCH (21:06)
[2022-10-10] MEDS: temazepam 15mg capsule PO PRN ×2 (21:07→22:19)
[2022-10-10] MEDS: furosemide 20MG tablet PO SCH (21:07)
[2022-10-10] MEDS: magnesium hydroxide 30ml (MOM) UD suspension PO PRN (22:19)
[2022-10-11 02:00] VITALS: BP 122/71
[2022-10-11] MEDS: ipratropium/albuterol 3ml nebule NEB SCH ×3 (02:51→11:22)
--- NOTE | 2022-10-11 06:30 | NUR ---
Patient in room PCU 3018. I have received report from Sudhir and had the opportunity to ask questions and assume patient care.
[2022-10-11 06:54] VITALS: BP 144/91
[2022-10-11] MEDS: K and/or MAG REPLACEMENT MC SCH (07:28)
[2022-10-11] MEDS: CefTRIAXone/D5W-Rocephin 1gm 50 ML IV SCH (07:37)
[2022-10-11] MEDS: clonazePAM 1mg tablet PO SCH (07:38)
[2022-10-11] MEDS: docusate sod 100mg capsule PO SCH (07:38)
[2022-10-11] MEDS: methadone 10mg tablet PO SCH (07:38)
[2022-10-11] MEDS: apixaban 5mg tablet PO SCH (07:38)
[2022-10-11] MEDS: atorvastatin 20mg tablet PO SCH (07:39)
[2022-10-11] MEDS: gabapentin 300mg capsule PO SCH ×3 (07:39→14:30)
[2022-10-11] MEDS: levoTHYROXINE 25mcg tablet PO SCH (07:39)
[2022-10-11] MEDS: FLUoxetine 20mg capsule PO SCH (07:39)
[2022-10-11] MEDS: furosemide 20MG tablet PO SCH (07:39)
[2022-10-11] MEDS: HYDROcodone/acetaminophen 10/325mg tab PO PRN ×2 (07:40→14:31)
[2022-10-11] MEDS ORDERED: predniSONE 20 mg tablet PO SCH (08:00)
[2022-10-11 08:44] LABS: ALANINE AMINOTRANSFERASE 30 U/L (12-78); ALBUMIN 3.2 G/DL (3.4-5.0); ALBUMIN/GLOBULIN RATIO 0.7 (1.1-1.5); ALKALINE PHOSPHATASE 123 IU/L (46-116); ANION GAP 5 (8-16); ASPARTATE AMINO TRANSFERASE 21 U/L (10-37); BILIRUBIN,TOTAL 0.2 MG/DL (0.1-1.0); BLOOD UREA NITROGEN 26 MG/DL (7-18); BUN/CREATININE RATIO 28.9 (6.6-38.0); CALCIUM 9.2 MG/DL (8.5-10.1); CHLORIDE 97 MMOL/L (99-107); GLUCOSE 113 MG/DL (70-104); MAGNESIUM 3.3 MG/DL (1.5-2.4); PHOSPHORUS 3.2 MG/DL (2.3-4.5); POTASSIUM 4.4 MMOL/L (3.5-5.1); SODIUM 136 MMOL/L (135-145); TOTAL CARBON DIOXIDE 34.4 MMOL/L (24-32); TOTAL PROTEIN 7.6 G/DL (6.4-8.2); eGFR 66 ML/MIN
[2022-10-11 09:18] LABS: BASOPHILS % (AUTO) 0.2 % (0-1); EOSINOPHILS % (AUTO) 0 % (0-6); HEMATOCRIT 42.1 % (35.0-45.0); HEMOGLOBIN 13.6 g/dl (12.0-16.0); LYMPHOCYTES # (AUTO) 1.2 X10'3 (1.1-4.8); LYMPHOCYTES % (AUTO) 10.1 % (21-51); MEAN CORPUSCULAR HEMOGLOBIN 30.5 PG (27.0-31.0); MEAN CORPUSCULAR HGB CONC 32.2 g/dL (33.0-36.5); MEAN CORPUSCULAR VOLUME 94.6 FL (78-98); MONOCYTES # (AUTO) 0.5 X10'3 (0-0.9); MONOCYTES % (AUTO) 3.8 % (2-12); NEUTROPHILS # (AUTO) 10.4 X10'3 (1.8-7.7); NEUTROPHILS % (AUTO) 85.9 % (42-75); PLATELET COUNT 311 X10'3 (140-440); RED BLOOD COUNT 4.45 X10'6 (4.20-5.60); RED CELL DISTRIBUTION WIDTH 14.7 % (11.5-14.5); WHITE BLOOD COUNT 12.2 X10'3 (4.5-11.0)
[2022-10-11] MEDS: azithromycin/NS 500mg/250ml 250 ML IV SCH (09:50)
[2022-10-11 11:00] VITALS: BP 134/76
[2022-10-11] MEDS ORDERED: FURO20TA4 PO (11:41)
[2022-10-11] MEDS ORDERED: POTA-206 PO (11:41)
[2022-10-11] MEDS ORDERED: PRED20TA PO (11:41)
[2022-10-11] MEDS ORDERED: LEVO-65 PO (11:41)
[2022-10-11] MEDS ORDERED: IPRA3AMP9 NEB (11:41)
[2022-10-11] MEDS ORDERED: EMPA10TA PO (11:45)
--- NOTE | 2022-10-11 13:55 | NUR ---
Re: [place] in , pt still here, vomiting clear fluid, thinks it's some lunch stuck, no SOB, no nausea, asking for xanax and pain meds, just naye Thank you Rosario
--- NOTE | 2022-10-11 15:13 | NUR ---
Reviewed discharge instructions with patient. Patient verbalized understanding. Assisted patient with dressing and gathering all belongings. Patient is alert, oriented and ready to discharge home. Patient phoned her mother to pick her. Patient was wheeled downstairs to be driven to the pharmacy and home by her mother.
== END 2022-10-11 15:09 | disposition home or self-care (01) | DRG 133 ==
LOC: ER 11:10 → ED HOLD 15:22 → PCU 3S 21:50
PROVIDERS: ADMIT Family Medicine; ATTEND Family Medicine
PROC: B32T1ZZ Computerized Tomography (CT Scan) of Left Pulmonary Artery using Low Osmolar Contrast (ICD-10-PCS; principal; 2022-10-07)
PROC: B3201ZZ Computerized Tomography (CT Scan) of Thoracic Aorta using Low Osmolar Contrast (ICD-10-PCS; 2022-10-07)
PROC: B32S1ZZ Computerized Tomography (CT Scan) of Right Pulmonary Artery using Low Osmolar Contrast (ICD-10-PCS; 2022-10-07)
DX: J96.01 Acute respiratory failure with hypoxia (principal); N17.0 Acute kidney failure with tubular necrosis; J69.0 Pneumonitis due to inhalation of food and vomit; I21.A1 Myocardial infarction type 2; I50.43 Acute on chronic combined systolic (congestive) and diastolic (congestive) heart failure; Z68.43 Body mass index [BMI] 50.0-59.9, adult; Z20.822 Contact with and (suspected) exposure to COVID-19; E03.9 Hypothyroidism, unspecified; E66.01 Morbid (severe) obesity due to excess calories; E78.00 Pure hypercholesterolemia, unspecified; K21.9 Gastro-esophageal reflux disease without esophagitis; M54.9 Dorsalgia, unspecified; F41.1 Generalized anxiety disorder; N18.9 Chronic kidney disease, unspecified; I13.0 Hypertensive heart and chronic kidney disease with heart failure and stage 1 through stage 4 chronic kidney disease, or unspecified chronic kidney disease; F11.90 Opioid use, unspecified, uncomplicated; G40.909 Epilepsy, unspecified, not intractable, without status epilepticus; E87.29 Other acidosis; J44.1 Chronic obstructive pulmonary disease with (acute) exacerbation; I82.552 Chronic embolism and thrombosis of left peroneal vein; F31.9 Bipolar disorder, unspecified; G89.4 Chronic pain syndrome; M41.9 Scoliosis, unspecified; N30.00 Acute cystitis without hematuria; Z79.01 Long term (current) use of anticoagulants; Z79.84 Long term (current) use of oral hypoglycemic drugs; Z82.49 Family history of ischemic heart disease and other diseases of the circulatory system; Z83.3 Family history of diabetes mellitus; Z90.711 Acquired absence of uterus with remaining cervical stump; Z95.1 Presence of aortocoronary bypass graft; Z98.891 History of uterine scar from previous surgery; Z56.0 Unemployment, unspecified; Z28.21 Immunization not carried out because of patient refusal; Z88.5 Allergy status to narcotic agent; Z79.899 Other long term (current) drug therapy; Z99.81 Dependence on supplemental oxygen
CPT/HCPCS: 36415; 36600; 71045; 71275; 80053; 80305; 81001; 82803; 83605; 83735; 83880; 84100; 84145; 84443; 84484; 85007; 85018; 85025; 87040; 87081; 87088; 87635; 90686; 90732; 93005; 93970; 94640; 94760; 97116; 97161; 97530; 99285; G0378; J0456; J0696; J1940; J2930; J3490; J7030; J7040; J7512; Q9967

== ENCOUNTER 2022-11-01 16:23 | Inpatient (IN) | payer MEDICAID ==
[~2022-11-01] VITALS: Ht 162.6 cm; Wt 133.0 kg
[~2022-11-01 16:23] MED LIST changes: +APIX5TAB3 PO; +EMPA10TA PO; -ENOX40SY7 SQ; +FURO20TA4 PO; +IPRA3AMP9 NEB; +METH10SO PO; +POTA-206 PO; +PRED20TA PO
[2022-11-01 17:14] LABS: BASOPHILS # (AUTO) 0.1 X10'3 (0-0.2); BASOPHILS % (AUTO) 1.1 % (0-1); EOSINOPHILS # (AUTO) 0.3 X10'3 (0-0.9); EOSINOPHILS % (AUTO) 3.4 % (0-6); HEMATOCRIT 36.3 % (35.0-45.0); HEMOGLOBIN 12.1 g/dl (12.0-16.0); LYMPHOCYTES # (AUTO) 2.2 X10'3 (1.1-4.8); MEAN CORPUSCULAR HEMOGLOBIN 31.3 PG (27.0-31.0); MEAN CORPUSCULAR HGB CONC 33.5 g/dL (33.0-36.5); MEAN CORPUSCULAR VOLUME 93.4 FL (78-98); MEAN PLATELET VOLUME 7.4 FL (7.4-10.4); MONOCYTES # (AUTO) 0.7 X10'3 (0-0.9); MONOCYTES % (AUTO) 8.8 % (2-12); NEUTROPHILS # (AUTO) 4.6 X10'3 (1.8-7.7); NEUTROPHILS % (AUTO) 58.7 % (42-75); PLATELET COUNT 233 X10'3 (140-440); RED BLOOD COUNT 3.88 X10'6 (4.20-5.60); RED CELL DISTRIBUTION WIDTH 14.6 % (11.5-14.5); WHITE BLOOD COUNT 7.8 X10'3 (4.5-11.0)
[2022-11-01 17:27] LABS: ALANINE AMINOTRANSFERASE 30 U/L (12-78); ALBUMIN 2.9 G/DL (3.4-5.0); ALBUMIN/GLOBULIN RATIO 0.7 (1.1-1.5); ALKALINE PHOSPHATASE 123 IU/L (46-116); ANION GAP 4 (8-16); ASPARTATE AMINO TRANSFERASE 33 U/L (10-37); BILIRUBIN,TOTAL 0.3 MG/DL (0.1-1.0); BLOOD UREA NITROGEN 21 MG/DL (7-18); BUN/CREATININE RATIO 13.4 (10.0-20.0); CALCIUM 8.4 MG/DL (8.5-10.1); CHLORIDE 103 MMOL/L (99-107); CREATININE 1.57 MG/DL (0.40-0.90); GLUCOSE 112 MG/DL (70-104); SODIUM 141 MMOL/L (135-145); TOTAL CARBON DIOXIDE 33.6 MMOL/L (24-32); TOTAL PROTEIN 6.9 G/DL (6.4-8.2); eGFR 35 ML/MIN
[2022-11-01 17:32] LABS: POTASSIUM 4.4 MMOL/L (3.5-5.1)
--- NOTE | 2022-11-01 17:32 | NUR ---
PT'S DAUGHTER CALLED WITH MEDICATION INFORMATION. DAUGHTER STATED THAT PT TAKES KLONOPIN 2MG PRN WITH A MAX OF BID AND USES O2 AT HOME. STATES THAT PT HAS HAD EPISODES OF SYCOPE WHEN SHE WALKS AROUND THE HOUSE WITHOUT HER O2 ON AND WHEN SHE HAS TAKEN TOO MUCH OF HER KLONPIN. DR BECKWITH NOTIFIED.
[2022-11-01] MEDS ORDERED: albuterol 2.5 MG/3 ML nebule CONTNEB ONE (17:50)
[2022-11-01] MEDS ORDERED: NORepinephrine 8mg/ 250ml NS 250 ML IV ONE (17:50)
--- NOTE | 2022-11-01 17:50 | NUR ---
pt pepe down to 30 HR, MD Guevara was notified and returned to bedside. pt was placed on EPI drip
[2022-11-01] MEDS ORDERED: epiNEPHrine inj 5 MG in normal saline 250ml IV soln 245 ML IV ONE ×2 (18:05→18:10)
[2022-11-01] MEDS ORDERED: atropine 1 MG/1 ML vial IV ONE (18:05)
[2022-11-01] MEDS ORDERED: atropine 0.1mg/ml 10ml syringe IV ONE (18:10)
[2022-11-01] MEDS ORDERED: albuterol 2.5 MG/3 ML nebule NEB ONE (18:20)
[2022-11-01] MEDS ORDERED: dexamethasone sod phosphate 10mg/ml inj IV STA (18:23)
--- NOTE | 2022-11-01 18:32 | NUR ---
Pt showed improvement in HR and B/P with Epi drip.
[2022-11-01] MEDS ORDERED: CefTRIAXone 2gm/D5W 50ml BAG 50 ML IV ONE (19:55)
--- NOTE | 2022-11-01 20:16 | NUR ---
Per MD, 10 mg administered. but not documented.
[2022-11-01 21:03] LABS: URINE AMPHETAMINE SCREEN NEGATIVE (Neg); URINE BARBITUATE SCREEN NEGATIVE (Neg); URINE BENZODIAZEPINES SCREEN NEGATIVE (Neg); URINE CANNABINOID SCREEN NEGATIVE (Neg); URINE COCAINE SCREEN NEGATIVE (Neg); URINE METHADONE SCREEN POSITIVE (Neg); URINE OPIATE SCREEN NEGATIVE (Neg); URINE PHENCYCLIDINE SCREEN NEGATIVE (Neg)
--- NOTE | 2022-11-01 21:16 | NUR ---
Dr. John in room with pt.
[2022-11-01] MEDS ORDERED: magnesium hydroxide 30ml (MOM) UD suspension PO PRN (21:50)
[2022-11-01] MEDS ORDERED: acetaminophen 325mg tablet PO PRN ×2 (21:50)
[2022-11-01] MEDS ORDERED: normal saline 1000ML IV soln IVB ONE (22:35)
--- NOTE | 2022-11-01 22:45 | NUR ---
Lactic Acit 4.9. Dr. Nunez notified. order for 500 ml bolus NS.
[2022-11-02] VITALS (18 sets, daily range): BP systolic 98–143; BP diastolic 47–70
--- NOTE | 2022-11-02 00:39 | NUR ---
Lactic acid 5.2. Dr. Nunez notified. MD orders to continue to titrate Epinephrine down.
[2022-11-02] MEDS ORDERED: ALBU6.7H14 INH (01:36)
[2022-11-02] MEDS: DOPamine 400mg/D5W 250ml 250 ML IV PRN ×3 (01:47→19:49)
[2022-11-02] MEDS ORDERED: METO25TA6 PO (01:55)
[2022-11-02] MEDS ORDERED: CLON2TAB11 PO (01:55)
[2022-11-02] MEDS ORDERED: FLUT1BLS4 PO (01:55)
[2022-11-02] MEDS ORDERED: LANS30CA56 PO (01:55)
[2022-11-02] MEDS ORDERED: QUET300T91 PO (01:55)
[2022-11-02] MEDS ORDERED: QUET400T54 PO (01:55)
[2022-11-02] MEDS ORDERED: IPRA3AMP31 NEB (01:55)
[2022-11-02] MEDS ORDERED: POTA-206 PO (01:58)
[2022-11-02] MEDS ORDERED: FURO20TA4 PO (01:58)
[2022-11-02] MEDS ORDERED: EMPA10TA PO (01:58)
--- NOTE | 2022-11-02 08:00 | NUR ---
Pt arrived from ED via gurney. She is oriented x4, respirations even and unlabored on 4 L/min O2 via nasal cannula. There is a right IJ central line in place with dopamine running at 7.5 mcg/kg/min. Pt is in sinus rhythm. Report received from HERMAN Melendez
[2022-11-02 08:50] LABS: BASOPHILS % (AUTO) 0.3 % (0-1); EOSINOPHILS % (AUTO) 0 % (0-6); HEMATOCRIT 39.3 % (35.0-45.0); LYMPHOCYTES # (AUTO) 0.7 X10'3 (1.1-4.8); LYMPHOCYTES % (AUTO) 4.9 % (21-51); MEAN CORPUSCULAR HEMOGLOBIN 30.8 PG (27.0-31.0); MEAN CORPUSCULAR HGB CONC 33.1 g/dL (33.0-36.5); MEAN CORPUSCULAR VOLUME 93.2 FL (78-98); MEAN PLATELET VOLUME 7.3 FL (7.4-10.4); MONOCYTES # (AUTO) 0.8 X10'3 (0-0.9); MONOCYTES % (AUTO) 5.6 % (2-12); NEUTROPHILS # (AUTO) 12.4 X10'3 (1.8-7.7); NEUTROPHILS % (AUTO) 89.2 % (42-75); PLATELET COUNT 236 X10'3 (140-440); RED BLOOD COUNT 4.22 X10'6 (4.20-5.60); RED CELL DISTRIBUTION WIDTH 14.5 % (11.5-14.5); WHITE BLOOD COUNT 13.9 X10'3 (4.5-11.0)
[2022-11-02 08:55] LABS: BLOOD UREA NITROGEN 15 MG/DL (7-18); CHLORIDE 105 MMOL/L (99-107); CREATININE 1.15 MG/DL (0.40-0.90); GLUCOSE 120 MG/DL (70-104); POTASSIUM 4.6 MMOL/L (3.5-5.1); SODIUM 142 MMOL/L (135-145); eGFR 50 ML/MIN
[2022-11-02 09:01] LABS: ALBUMIN 3.3 G/DL (3.4-5.0); ANION GAP 8 (8-16); MAGNESIUM 2.6 MG/DL (1.5-2.4); TOTAL CARBON DIOXIDE 29.1 MMOL/L (24-32)
[2022-11-02] MEDS ORDERED: ipratropium/albuterol 3ml nebule NEB PRN (10:45)
[2022-11-02] MEDS: normal saline 1000ml 1,000 ML IV SCH ×2 (11:22→19:03)
[2022-11-02] MEDS: gabapentin 300mg capsule PO SCH ×2 (12:10→20:18)
[2022-11-02] MEDS: HYDROmorphone 1 mg/ml syringe IV PRN ×3 (12:11→20:39)
[2022-11-02] MEDS: albuterol 2.5 MG/3 ML nebule NEB SCH ×4 (12:13→23:43)
--- NOTE | 2022-11-02 14:43 | NUR ---
Pt's O2 tank an tank carrier sent home with family.
--- NOTE | 2022-11-02 16:38 | NUR ---
Pt becoming increasingly anxious regarding the timing and dose of her Klonopin. Dr Varner called. Obtained order for 2 mg clonazepam tab q HS. Unable to titrate dopamine off without severe hypotension.
--- NOTE | 2022-11-02 18:30 | NUR ---
Patient in room CICU 2011. I have received report from HERMAN Nuñez and had the opportunity to ask questions and assume patient care.
[2022-11-02] MEDS: apixaban 5mg tablet PO SCH (20:18)
[2022-11-02] MEDS ORDERED: clonazePAM 1mg tablet PO SCH (21:00)
[2022-11-03] VITALS (24 sets, daily range): BP systolic 90–142; BP diastolic 42–82
[2022-11-03 02:42] LABS: BASOPHILS % (AUTO) 0.2 % (0-1); EOSINOPHILS % (AUTO) 0.1 % (0-6); HEMATOCRIT 37.9 % (35.0-45.0); HEMOGLOBIN 12.5 g/dl (12.0-16.0); LYMPHOCYTES # (AUTO) 1.3 X10'3 (1.1-4.8); LYMPHOCYTES % (AUTO) 11.1 % (21-51); MEAN CORPUSCULAR HEMOGLOBIN 30.5 PG (27.0-31.0); MEAN CORPUSCULAR VOLUME 92.4 FL (78-98); MEAN PLATELET VOLUME 7.1 FL (7.4-10.4); MONOCYTES # (AUTO) 0.8 X10'3 (0-0.9); MONOCYTES % (AUTO) 6.8 % (2-12); NEUTROPHILS # (AUTO) 9.9 X10'3 (1.8-7.7); NEUTROPHILS % (AUTO) 81.8 % (42-75); PLATELET COUNT 226 X10'3 (140-440); RED CELL DISTRIBUTION WIDTH 14.8 % (11.5-14.5); WHITE BLOOD COUNT 12.1 X10'3 (4.5-11.0)
[2022-11-03 02:48] LABS: ALBUMIN 2.8 G/DL (3.4-5.0); ANION GAP 7 (8-16); BLOOD UREA NITROGEN 13 MG/DL (7-18); BUN/CREATININE RATIO 12.4 (10.0-20.0); CALCIUM 8.7 MG/DL (8.5-10.1); CHLORIDE 106 MMOL/L (99-107); CREATININE 1.05 MG/DL (0.40-0.90); GLUCOSE 131 MG/DL (70-104); MAGNESIUM 2.5 MG/DL (1.5-2.4); POTASSIUM 4.7 MMOL/L (3.5-5.1); SODIUM 142 MMOL/L (135-145); TOTAL CARBON DIOXIDE 28.9 MMOL/L (24-32); eGFR 55 ML/MIN
[2022-11-03] MEDS: normal saline 1000ml 1,000 ML IV SCH ×3 (03:01→18:52)
[2022-11-03] MEDS: HYDROmorphone 1 mg/ml syringe IV PRN ×7 (03:08→23:25)
[2022-11-03] MEDS: albuterol 2.5 MG/3 ML nebule NEB SCH ×6 (04:06→23:51)
--- NOTE | 2022-11-03 06:16 | NUR ---
Problems reprioritized. Patient report given, questions answered & plan of care reviewed with HERMAN Pulido.
--- NOTE | 2022-11-03 06:21 | NUR ---
Patient in room CICU 2012. I have received report from HERMAN Jules and had the opportunity to ask questions and assume patient care.
[2022-11-03] MEDS: atorvastatin 20mg tablet PO SCH (07:54)
[2022-11-03] MEDS: folic acid 1mg tablet PO SCH (07:54)
[2022-11-03] MEDS: apixaban 5mg tablet PO SCH ×2 (07:54→19:51)
[2022-11-03] MEDS: gabapentin 300mg capsule PO SCH ×3 (07:54→19:51)
[2022-11-03] MEDS: EMPAGLIFLOZIN 10 MG TABLET PO SCH (07:54)
[2022-11-03] MEDS: FLUoxetine 20mg capsule PO SCH (07:54)
[2022-11-03] MEDS: levoTHYROXINE 25mcg tablet PO SCH (07:56)
--- NOTE | 2022-11-03 09:05 | NUR ---
Dr. Varner stated to order the patient 2mg of Dilaudid Q3H IVP in addition to the option for 1mg.
[2022-11-03] MEDS ORDERED: ondansetron 4mg rapidly disintigrating tab PO PRN (10:25)
--- NOTE | 2022-11-03 10:43 | NUR ---
Rounds note: Per Dr. Varner patient can be transferred out of the unit if she maintains a map of 65 for two hours off of Dopamine. He also stated that we can add a PRN Zofran and change her Clonazepam to morning dose instead of evening.
[2022-11-03] MEDS: clonazePAM 1mg tablet PO SCH (11:04)
--- NOTE | 2022-11-03 18:14 | NUR ---
Patient in room CICU 2011. I have received report from HERMAN Pulido and had the opportunity to ask questions and assume patient care.
[2022-11-04] VITALS (11 sets, daily range): BP systolic 83–106; BP diastolic 45–69
[2022-11-04] MEDS: normal saline 1000ml 1,000 ML IV SCH (02:55)
[2022-11-04 03:01] LABS: BASOPHILS % (AUTO) 0.6 % (0-1); EOSINOPHILS # (AUTO) 0.3 X10'3 (0-0.9); EOSINOPHILS % (AUTO) 3.6 % (0-6); HEMATOCRIT 32.8 % (35.0-45.0); HEMOGLOBIN 10.8 g/dl (12.0-16.0); LYMPHOCYTES # (AUTO) 2.1 X10'3 (1.1-4.8); LYMPHOCYTES % (AUTO) 24.7 % (21-51); MEAN CORPUSCULAR HEMOGLOBIN 30.9 PG (27.0-31.0); MEAN CORPUSCULAR HGB CONC 33.1 g/dL (33.0-36.5); MEAN CORPUSCULAR VOLUME 93.4 FL (78-98); MONOCYTES # (AUTO) 0.6 X10'3 (0-0.9); MONOCYTES % (AUTO) 7.6 % (2-12); NEUTROPHILS # (AUTO) 5.3 X10'3 (1.8-7.7); NEUTROPHILS % (AUTO) 63.5 % (42-75); PLATELET COUNT 195 X10'3 (140-440); RED BLOOD COUNT 3.51 X10'6 (4.20-5.60); WHITE BLOOD COUNT 8.4 X10'3 (4.5-11.0)
[2022-11-04 03:14] LABS: ALBUMIN 2.4 G/DL (3.4-5.0); ANION GAP 4 (8-16); BLOOD UREA NITROGEN 15 MG/DL (7-18); BUN/CREATININE RATIO 15.3 (10.0-20.0); CALCIUM 8.3 MG/DL (8.5-10.1); CHLORIDE 106 MMOL/L (99-107); CREATININE 0.98 MG/DL (0.40-0.90); GLUCOSE 94 MG/DL (70-104); MAGNESIUM 2.1 MG/DL (1.5-2.4); POTASSIUM 4.4 MMOL/L (3.5-5.1); SODIUM 140 MMOL/L (135-145); TOTAL CARBON DIOXIDE 30.3 MMOL/L (24-32); eGFR 60 ML/MIN
[2022-11-04] MEDS: albuterol 2.5 MG/3 ML nebule NEB SCH ×6 (03:32→23:00)
[2022-11-04] MEDS: HYDROmorphone 1 mg/ml syringe IV PRN ×5 (04:48→21:05)
--- NOTE | 2022-11-04 06:26 | NUR ---
Problems reprioritized. Patient report given, questions answered & plan of care reviewed with HERMAN Ruth.
[2022-11-04] MEDS: clonazePAM 1mg tablet PO SCH (09:43)
[2022-11-04] MEDS: EMPAGLIFLOZIN 10 MG TABLET PO SCH (09:43)
[2022-11-04] MEDS: FLUoxetine 20mg capsule PO SCH (09:43)
[2022-11-04] MEDS: atorvastatin 20mg tablet PO SCH (09:44)
[2022-11-04] MEDS: gabapentin 300mg capsule PO SCH ×2 (09:44→19:54)
[2022-11-04] MEDS: apixaban 5mg tablet PO SCH ×2 (09:44→19:54)
[2022-11-04] MEDS: folic acid 1mg tablet PO SCH (09:44)
[2022-11-04] MEDS: levoTHYROXINE 25mcg tablet PO SCH (09:44)
[2022-11-05] MEDS ORDERED: HYDROmorphone inj. 0.5 MG/0.5 ML DISP.SYRIN ONE (01:22)
[2022-11-05] MEDS: HYDROmorphone 1 mg/ml syringe IV PRN ×3 (01:29→09:45)
[2022-11-05] MEDS: albuterol 2.5 MG/3 ML nebule NEB SCH ×5 (03:58→19:57)
[2022-11-05 06:00] VITALS: BP 116/73
[2022-11-05 06:22] LABS: BASOPHILS # (AUTO) 0.1 X10'3 (0-0.2); BASOPHILS % (AUTO) 0.8 % (0-1); EOSINOPHILS # (AUTO) 0.4 X10'3 (0-0.9); EOSINOPHILS % (AUTO) 4.9 % (0-6); HEMATOCRIT 35.7 % (35.0-45.0); HEMOGLOBIN 11.9 g/dl (12.0-16.0); LYMPHOCYTES # (AUTO) 2.1 X10'3 (1.1-4.8); LYMPHOCYTES % (AUTO) 26.6 % (21-51); MEAN CORPUSCULAR HEMOGLOBIN 31.1 PG (27.0-31.0); MEAN CORPUSCULAR HGB CONC 33.3 g/dL (33.0-36.5); MEAN CORPUSCULAR VOLUME 93.4 FL (78-98); MEAN PLATELET VOLUME 7.2 FL (7.4-10.4); MONOCYTES # (AUTO) 0.6 X10'3 (0-0.9); MONOCYTES % (AUTO) 7.8 % (2-12); NEUTROPHILS # (AUTO) 4.7 X10'3 (1.8-7.7); NEUTROPHILS % (AUTO) 59.9 % (42-75); PLATELET COUNT 210 X10'3 (140-440); RED BLOOD COUNT 3.82 X10'6 (4.20-5.60); RED CELL DISTRIBUTION WIDTH 14.6 % (11.5-14.5); WHITE BLOOD COUNT 7.9 X10'3 (4.5-11.0)
[2022-11-05 06:41] LABS: ALBUMIN 2.6 G/DL (3.4-5.0); ANION GAP 5 (8-16); BLOOD UREA NITROGEN 17 MG/DL (7-18); BUN/CREATININE RATIO 18.1 (10.0-20.0); CALCIUM 8.8 MG/DL (8.5-10.1); CHLORIDE 103 MMOL/L (99-107); CREATININE 0.94 MG/DL (0.40-0.90); GLUCOSE 91 MG/DL (70-104); MAGNESIUM 2.1 MG/DL (1.5-2.4); POTASSIUM 3.9 MMOL/L (3.5-5.1); SODIUM 139 MMOL/L (135-145); TOTAL CARBON DIOXIDE 31.1 MMOL/L (24-32); eGFR 63 ML/MIN
--- NOTE | 2022-11-05 06:50 | NUR ---
Patient in room ORTHO 4010. I have received report from HERMAN Medellin and had the opportunity to ask questions and assume patient care.
[2022-11-05] MEDS: gabapentin 300mg capsule PO SCH ×2 (07:58→20:05)
[2022-11-05] MEDS: clonazePAM 1mg tablet PO SCH (07:58)
[2022-11-05] MEDS: folic acid 1mg tablet PO SCH (07:59)
[2022-11-05] MEDS: EMPAGLIFLOZIN 10 MG TABLET PO SCH (07:59)
[2022-11-05] MEDS: levoTHYROXINE 25mcg tablet PO SCH (07:59)
[2022-11-05] MEDS: FLUoxetine 20mg capsule PO SCH (07:59)
[2022-11-05] MEDS: apixaban 5mg tablet PO SCH ×2 (07:59→20:05)
[2022-11-05] MEDS: atorvastatin 20mg tablet PO SCH (07:59)
--- NOTE | 2022-11-05 09:38 | NUR ---
Initial: Pt admit DX syncope, symptomatic bradycardia, CHF, hypothyroidism, HTN, and afib per EMR. PO ~86% avg regular/EC7 diet meeting estimated needs; left dentures at home per EMR. LBM 11/03. No nutrition concerns at this time. Will continue to follow. Rec: 1. continue regular/EC7 diet 2. bowel care per rx 3. weekly wt Addendum: 11/05/22 at [address] Amended: Links added.
[2022-11-05 11:00] VITALS: BP 105/76
--- NOTE | 2022-11-05 13:56 | NUR ---
Pt stated she was getting Methadone from [facility] in [place]. Pt was receiving dosage of 50mg PO QD per clinic. Page to Dr Pham to confirm when he would like med to be started based off of pt's last dose of dilaudid. PAGER ID: [phone] MESSAGE: [phone] - Vibha Friend. Per [facility] pt was getting 50mg methadone PO DQ. Entering order in [facility]. 2MG of Dilaudid given at 0945. When would you like methadone dose to start. Please Call - [phone]. Thank you, Ihsan.
[2022-11-05] MEDS: HYDROcodone/acetaminophen 10/325mg tab PO PRN ×2 (15:44→20:05)
--- NOTE | 2022-11-05 16:10 | NUR ---
PAPER CORE MACHINE OPERATOR documentation: I have reviewed and agree with all interventions, assessments performed and documented by Ihsan HOWELL.
--- NOTE | 2022-11-05 16:11 | NUR ---
LYNDA Medication Administration: For this medication-pass time frame, all medication were reviewed, dispensed, administered and documented per hospital policy by Ihsan HOWELL.
[2022-11-05 18:00] VITALS: BP 150/78
--- NOTE | 2022-11-05 18:22 | NUR ---
Problems reprioritized. Patient report given, questions answered & plan of care reviewed with Angela Harrison RN.
[2022-11-05 22:00] VITALS: BP 115/72
[2022-11-06] MEDS: HYDROcodone/acetaminophen 10/325mg tab PO PRN ×3 (00:51→08:45)
[2022-11-06 02:00] VITALS: BP 121/66
[2022-11-06] MEDS: albuterol 2.5 MG/3 ML nebule NEB SCH ×4 (03:59→12:00)
[2022-11-06 05:19] LABS: BASOPHILS # (AUTO) 0.1 X10'3 (0-0.2); BASOPHILS % (AUTO) 0.7 % (0-1); EOSINOPHILS # (AUTO) 0.3 X10'3 (0-0.9); EOSINOPHILS % (AUTO) 4.4 % (0-6); HEMATOCRIT 36.9 % (35.0-45.0); HEMOGLOBIN 12.3 g/dl (12.0-16.0); LYMPHOCYTES # (AUTO) 1.9 X10'3 (1.1-4.8); LYMPHOCYTES % (AUTO) 23.5 % (21-51); MEAN CORPUSCULAR HEMOGLOBIN 30.7 PG (27.0-31.0); MEAN CORPUSCULAR HGB CONC 33.3 g/dL (33.0-36.5); MEAN CORPUSCULAR VOLUME 92.2 FL (78-98); MONOCYTES # (AUTO) 0.6 X10'3 (0-0.9); NEUTROPHILS # (AUTO) 5.1 X10'3 (1.8-7.7); NEUTROPHILS % (AUTO) 64.4 % (42-75); PLATELET COUNT 217 X10'3 (140-440); RED CELL DISTRIBUTION WIDTH 14.5 % (11.5-14.5)
[2022-11-06 05:27] LABS: ALBUMIN 2.7 G/DL (3.4-5.0); ANION GAP 5 (8-16); BLOOD UREA NITROGEN 19 MG/DL (7-18); BUN/CREATININE RATIO 20.2 (10.0-20.0); CALCIUM 8.8 MG/DL (8.5-10.1); CHLORIDE 104 MMOL/L (99-107); CREATININE 0.94 MG/DL (0.40-0.90); GLUCOSE 96 MG/DL (70-104); MAGNESIUM 2.3 MG/DL (1.5-2.4); POTASSIUM 3.5 MMOL/L (3.5-5.1); SODIUM 138 MMOL/L (135-145); TOTAL CARBON DIOXIDE 29.5 MMOL/L (24-32); eGFR 63 ML/MIN
--- NOTE | 2022-11-06 06:29 | NUR ---
Problems reprioritized. Patient report given, questions answered & plan of care reviewed with Alexander SUTTON.
[2022-11-06 07:00] VITALS: BP 129/84
[2022-11-06] MEDS ORDERED: levoTHYROXINE 100mcg tablet PO SCH (07:00)
[2022-11-06] MEDS: apixaban 5mg tablet PO SCH (08:24)
[2022-11-06] MEDS: FLUoxetine 20mg capsule PO SCH (08:25)
[2022-11-06] MEDS: clonazePAM 1mg tablet PO SCH (08:25)
[2022-11-06] MEDS: gabapentin 300mg capsule PO SCH (08:25)
[2022-11-06] MEDS: EMPAGLIFLOZIN 10 MG TABLET PO SCH (08:26)
[2022-11-06] MEDS: atorvastatin 20mg tablet PO SCH (08:26)
[2022-11-06] MEDS: folic acid 1mg tablet PO SCH (08:26)
[2022-11-06 10:00] VITALS: BP 134/77
[2022-11-06] MEDS ORDERED: LEVO50TA8 PO (12:18)
[2022-11-06] MEDS ORDERED: HYDR-3965 PO (12:19)
== END 2022-11-06 13:10 | disposition home or self-care (01) | DRG 207 ==
LOC: ER 16:23 → ED HOLD 22:10 → EDBEDREQ 11-02 04:16 → CICU 2S 11-02 07:50 → ORTHO 4S 11-04 06:45
PROVIDERS: ADMIT Internal Medicine Critical Care Medicine; ATTEND Family Medicine
PROC: 05HY33Z Insertion of Infusion Device into Upper Vein, Percutaneous Approach (ICD-10-PCS; principal; 2022-11-01)
DX: I95.9 Hypotension, unspecified (principal); N17.9 Acute kidney failure, unspecified; E03.9 Hypothyroidism, unspecified; I11.0 Hypertensive heart disease with heart failure; I50.32 Chronic diastolic (congestive) heart failure; E11.9 Type 2 diabetes mellitus without complications; R00.1 Bradycardia, unspecified; Z68.43 Body mass index [BMI] 50.0-59.9, adult; E78.00 Pure hypercholesterolemia, unspecified; E66.01 Morbid (severe) obesity due to excess calories; T40.3X5A Adverse effect of methadone, initial encounter; F41.9 Anxiety disorder, unspecified; I48.91 Unspecified atrial fibrillation; M54.9 Dorsalgia, unspecified; K21.9 Gastro-esophageal reflux disease without esophagitis; G89.4 Chronic pain syndrome; Z79.01 Long term (current) use of anticoagulants; Z79.891 Long term (current) use of opiate analgesic; Z82.49 Family history of ischemic heart disease and other diseases of the circulatory system; Z83.3 Family history of diabetes mellitus; Z86.711 Personal history of pulmonary embolism; Z87.891 Personal history of nicotine dependence; Z90.710 Acquired absence of both cervix and uterus; Z98.891 History of uterine scar from previous surgery; Z56.0 Unemployment, unspecified; Z88.5 Allergy status to narcotic agent; Z79.899 Other long term (current) drug therapy; Z79.890 Hormone replacement therapy; Y92.89 Other specified places as the place of occurrence of the external cause
CPT/HCPCS: 20950; 36415; 71045; 80048; 80053; 80305; 82800; 82948; 83605; 83735; 83880; 84443; 84484; 85025; 87040; 87081; 93005; 93308; 94640; 94760; 96365; 96367; 96375; 97116; 97161; 97530; 99291; A6213; C1751; G0378; J0171; J0461; J0696; J1170; J1265; J3490; J7030; J7040; J7050